=== PATIENT | male | born 1940 | race Two or more races ===

== ENCOUNTER 2017-08-10 16:04 | Inpatient (IN) | payer MEDICARE, MEDICAID ==
[~2017-08-10] VITALS: Ht 177.8 cm; Wt 60.0 kg
[~2017-08-10 16:04] MED LIST: ASPI81TA52 PO; CLOP75TA33 PO; DEXL60CA3 PO; IBUP-1985 PO; ISOS30TA6 PO; MECL-111 PO; METF10002 PO; METO25TA6 PO; ONDA4TAB12 PO; SIMV40TA PO; TAMS0.4C32 PO
[2017-08-10 16:30] LABS: BASOPHILS % (AUTO) 0.3 % (0-1); EOSINOPHILS # (AUTO) 0.1 X10'3 (0-0.9); EOSINOPHILS % (AUTO) 1.1 % (0-6); HEMATOCRIT 41.1 % (42.0-52.0); HEMOGLOBIN 13.7 g/dl (14.0-17.9); LYMPHOCYTES # (AUTO) 1.3 X10'3 (1.1-4.8); LYMPHOCYTES % (AUTO) 16.1 % (21-51); MEAN CORPUSCULAR HEMOGLOBIN 30.4 PG (27.0-31.0); MEAN CORPUSCULAR HGB CONC 33.3 % (33.0-36.5); MEAN CORPUSCULAR VOLUME 91.3 FL (78-98); MEAN PLATELET VOLUME 8.3 FL (7.4-10.4); MONOCYTES # (AUTO) 0.4 X10'3 (0-0.9); MONOCYTES % (AUTO) 5.2 % (2-12); NEUTROPHILS # (AUTO) 6.3 X10'3 (1.8-7.7); NEUTROPHILS % (AUTO) 77.3 % (42-75); PLATELET COUNT 220 X10'3 (140-440); RED CELL DISTRIBUTION WIDTH 15.8 % (11.5-14.5); WHITE BLOOD COUNT 8.1 X10'3 (4.5-11.0)
[2017-08-10 16:40] LABS: INR 1.1 INR; PARTIAL THROMBOPLASTIN TIME 28 SECONDS (22-32); PROTHROMBIN TIME 11.3 SECONDS (9.0-12.0)
[2017-08-10 16:43] LABS: ALANINE AMINOTRANSFERASE 20 U/L (12-78); ALBUMIN 3.9 G/DL (3.4-5.0); ALKALINE PHOSPHATASE 61 IU/L (46-116); ANION GAP 13 (8-16); ASPARTATE AMINO TRANSFERASE 13 U/L (10-37); BILIRUBIN,TOTAL 0.3 MG/DL (0.1-1.0); BLOOD UREA NITROGEN 24 MG/DL (7-18); BUN/CREATININE RATIO 14.6 (5.4-32.0); CALCIUM 9.5 MG/DL (8.5-10.1); CHLORIDE 103 MMOL/L (99-107); CREATININE 1.64 MG/DL (0.60-1.10); GLUCOSE 160 MG/DL (70-104); POTASSIUM 4.5 MMOL/L (3.5-5.1); SODIUM 142 MMOL/L (135-145); TOTAL CARBON DIOXIDE 25.7 MMOL/L (24-32); TOTAL PROTEIN 7.9 G/DL (6.4-8.2); eGFR 41 ML/MIN
[2017-08-10] MEDS ORDERED: aspirin 325mg tablet PO ONE (18:15)
[2017-08-10] MEDS ORDERED: LISI-600 PO (19:13)
[2017-08-11] VITALS (21 sets, daily range): BP systolic 81–123; BP diastolic 35–89
[2017-08-11] MEDS ORDERED: regadenoson 0.4mg/5ml syringe IV ONE ×2 (00:20→09:21)
[2017-08-11] MEDS ORDERED: magnesium 2GM in 50ml NS 50 ML IV PRN (00:20)
[2017-08-11] MEDS ORDERED: potassium Cl 20 mEq SR tablet PO PRN ×2 (00:20)
[2017-08-11] MEDS ORDERED: ipratropium/albuterol 3ml nebule NEB PRN (00:20)
[2017-08-11] MEDS ORDERED: morphine 4 MG/ML inj SYRINge IV PRN ×2 (00:20)
[2017-08-11] MEDS ORDERED: magnesium 4gm in 100ml NS 100 ML IV PRN (00:20)
[2017-08-11] MEDS ORDERED: ondansetron/PF 4mg/2ml inj IV PRN (00:20)
[2017-08-11] MEDS ORDERED: aminophylline 250mg/10ml inj. IV PRN (00:20)
[2017-08-11] MEDS ORDERED: albuterol 2.5 MG/3 ML nebule NEB PRN (00:20)
[2017-08-11] MEDS ORDERED: metoprolol tartrate 1mg/ml inj IV PRN (00:20)
[2017-08-11] MEDS ORDERED: magnesium Cl slow-release 64mg tablet PO PRN (00:20)
[2017-08-11] MEDS ORDERED: heparin 10,000 units/1 ML INJ IV ONE (00:20)
[2017-08-11] MEDS ORDERED: acetaminophen 325mg tablet PO PRN (00:20)
[2017-08-11] MEDS ORDERED: magnesium hydroxide 30ml (MOM) UD suspension PO PRN (00:20)
[2017-08-11] MEDS ORDERED: mag hydrox/Alum hydrox/simeth 30ml oral suspension PO PRN (00:20)
[2017-08-11] MEDS ORDERED: potassium Cl 40MEQ/NS 500ml 500 ML IV PRN ×2 (00:20)
[2017-08-11 01:11] LABS: HEMOGLOBIN A1C 6.4 % (4.5-6.2)
[2017-08-11] MEDS: normal saline 1000ml 1,000 ML IV SCH (02:18)
[2017-08-11] MEDS: nitroGLYCERIN 0.4mg SUBLingual tab SL PRN ×2 (04:46→04:53)
[2017-08-11 05:20] LABS: INR 1.1 INR; PARTIAL THROMBOPLASTIN TIME 65 SECONDS (22-32); PROTHROMBIN TIME 11.5 SECONDS (9.0-12.0)
[2017-08-11] MEDS: aspirin 81mg tablet.DR PO SCH (07:54)
[2017-08-11] MEDS: tamsulosin 0.4mg capsule PO SCH (07:54)
[2017-08-11] MEDS: clopidogrel 75mg tablet PO SCH (07:54)
[2017-08-11] MEDS: K and/or MAG REPLACEMENT MC SCH (08:00)
[2017-08-11] MEDS ORDERED: aminophylline inj. 10 ML IV ONE (09:21)
[2017-08-11] MEDS: heparin 10,000 units/1 ML INJ IV PRN (10:44)
[2017-08-11] MEDS: lisinopril 20mg tablet PO SCH (11:44)
[2017-08-11] MEDS ORDERED: temazepam 15mg capsule PO PRN (21:00)
[2017-08-11] MEDS ORDERED: atorvastatin 10mg tablet PO SCH (21:00)
[2017-08-12] VITALS (15 sets, daily range): BP systolic 82–200; BP diastolic 40–89
[2017-08-12] MEDS: heparin 10,000 units/1 ML INJ IV PRN (04:41)
[2017-08-12 06:07] LABS: BASOPHILS # (AUTO) 0.1 X10'3 (0-0.2); BASOPHILS % (AUTO) 0.6 % (0-1); EOSINOPHILS # (AUTO) 0.2 X10'3 (0-0.9); EOSINOPHILS % (AUTO) 2.7 % (0-6); HEMATOCRIT 37.5 % (42.0-52.0); HEMOGLOBIN 12.5 g/dl (14.0-17.9); LYMPHOCYTES # (AUTO) 1.4 X10'3 (1.1-4.8); LYMPHOCYTES % (AUTO) 17.4 % (21-51); MEAN CORPUSCULAR HEMOGLOBIN 30.7 PG (27.0-31.0); MEAN CORPUSCULAR HGB CONC 33.4 % (33.0-36.5); MEAN CORPUSCULAR VOLUME 91.9 FL (78-98); MEAN PLATELET VOLUME 8.9 FL (7.4-10.4); MONOCYTES # (AUTO) 0.6 X10'3 (0-0.9); MONOCYTES % (AUTO) 6.9 % (2-12); NEUTROPHILS # (AUTO) 5.9 X10'3 (1.8-7.7); NEUTROPHILS % (AUTO) 72.4 % (42-75); PLATELET COUNT 176 X10'3 (140-440); RED BLOOD COUNT 4.08 X10'6 (4.70-6.10); WHITE BLOOD COUNT 8.2 X10'3 (4.5-11.0)
[2017-08-12 06:26] LABS: ALBUMIN 3.3 G/DL (3.4-5.0); ANION GAP 10 (8-16); BLOOD UREA NITROGEN 25 MG/DL (7-18); BUN/CREATININE RATIO 22.1 (5.4-32.0); CALCIUM 9.1 MG/DL (8.5-10.1); CHLORIDE 106 MMOL/L (99-107); CHOL/HDL RATIO 3.4 (0.00-4.99); CHOLESTEROL 171 MG/DL (0-200); CREATININE 1.13 MG/DL (0.60-1.10); GLUCOSE 125 MG/DL (70-104); HDL CHOLESTEROL 51 MG/DL (35-60); LDL CHOLESTEROL 86 MG/DL (50-100); MAGNESIUM 1.6 MG/DL (1.5-2.4); POTASSIUM 4.2 MMOL/L (3.5-5.1); SODIUM 143 MMOL/L (135-145); TRIGLYCERIDES 217 MG/DL (20-135); eGFR 63 ML/MIN
[2017-08-12] MEDS: lisinopril 20mg tablet PO SCH ×2 (08:00→13:43)
[2017-08-12] MEDS: tamsulosin 0.4mg capsule PO SCH (08:00)
[2017-08-12] MEDS: aspirin 81mg tablet.DR PO SCH (08:00)
[2017-08-12] MEDS: clopidogrel 75mg tablet PO SCH (08:00)
[2017-08-12] MEDS: K and/or MAG REPLACEMENT MC SCH (08:00)
[2017-08-12] MEDS ORDERED: nitroGLYCERIN-Tridil 50MG/D5W 250 ML IV ONE (09:43)
[2017-08-12] MEDS ORDERED: fentaNYL/PF 50MCG/1 ML 2ML syringe ONE (09:43)
[2017-08-12] MEDS ORDERED: midazolam 2 mg/2 ml injection ONE (09:43)
[2017-08-12] MEDS ORDERED: iohexol 350MG/ML 100ml bottle IV ONE (09:44)
[2017-08-12] MEDS ORDERED: heparin 1,000unit/ml 10ml vial 10 ML ONE (09:44)
[2017-08-12] MEDS ORDERED: LIDOcaine 1%/PF (10mg/ml) 5ml vial ONE (09:44)
[2017-08-12] MEDS ORDERED: iohexol 350 MG/ML 50ML vial IV ONE (09:44)
[2017-08-12] MEDS ORDERED: atropine 0.1mg/ml 10ml syringe ONE (11:05)
[2017-08-12] MEDS ORDERED: IOHEXOL 350 MG/ML 150 ML injection IV ONE (11:07)
[2017-08-12] MEDS ORDERED: heparin 1,000 UNITS/NS 500ml 500 ML ONE (11:37)
[2017-08-12] MEDS ORDERED: clopidogrel 300mg tablet ONE (12:38)
[2017-08-12 13:30] LABS: ISTAT HGB ART 12.9 g/dl (14.0-18.0); ISTAT Hct ART 38 %PCV (42-52); ISTAT O2 SATURATION ARTERIAL 94 % (95-98); ISTAT SOURCE ART
[2017-08-12] MEDS ORDERED: clopidogrel 300mg tablet PO ONE (14:05)
[2017-08-12] MEDS ORDERED: nitroGLYCERIN-Tridil 50MG/D5W 250 ML IV PRN (14:10)
[2017-08-12] MEDS ORDERED: HYDROcodone/acetaminophen 10/325mg tab PO PRN ×2 (14:10)
[2017-08-12] MEDS ORDERED: OXAZEpam 15mg capsule PO PRN (14:10)
[2017-08-12] MEDS ORDERED: magnesium hydroxide 30ml (MOM) UD suspension PO PRN (14:10)
[2017-08-12] MEDS ORDERED: acetaminophen 325mg tablet PO PRN (14:10)
[2017-08-12] MEDS ORDERED: cyclobenzaprine 10mg tablet PO PRN (14:10)
[2017-08-12] MEDS ORDERED: aspirin 325mg tablet PO ONE (14:10)
[2017-08-12] MEDS ORDERED: proCHLORperazine 10 MG/2 ml inj IV PRN (14:10)
[2017-08-12] MEDS ORDERED: normal saline 1000ml 1,000 ML IV ONE (14:35)
[2017-08-12] MEDS ORDERED: hydrALAZINE 20mg/ml inj. IV PRN (18:35)
[2017-08-12] MEDS: normal saline 1000ml 1,000 ML IV SCH (20:31)
[2017-08-12] MEDS: atorvastatin 20mg tablet PO SCH (20:32)
[2017-08-12] MEDS: docusate sod 100mg capsule PO SCH (20:33)
[2017-08-12] MEDS: metoprolol tartrate 25mg tablet PO SCH (20:33)
[2017-08-13] VITALS (15 sets, daily range): BP systolic 92–146; BP diastolic 46–89
[2017-08-13] MEDS: K and/or MAG REPLACEMENT MC SCH (08:00)
[2017-08-13] MEDS: metoprolol tartrate 25mg tablet PO SCH ×2 (08:00→20:06)
[2017-08-13] MEDS ORDERED: aspirin 325mg tablet PO SCH (08:30)
[2017-08-13] MEDS: clopidogrel 75mg tablet PO SCH (09:37)
[2017-08-13] MEDS: tamsulosin 0.4mg capsule PO SCH (09:37)
[2017-08-13] MEDS: docusate sod 100mg capsule PO SCH ×2 (09:37→20:06)
[2017-08-13] MEDS: atorvastatin 20mg tablet PO SCH (20:06)
[2017-08-14 03:00] VITALS: BP 105/43
[2017-08-14 05:17] LABS: BASOPHILS % (AUTO) 0.5 % (0-1); EOSINOPHILS # (AUTO) 0.1 X10'3 (0-0.9); EOSINOPHILS % (AUTO) 1.8 % (0-6); HEMATOCRIT 35.2 % (42.0-52.0); HEMOGLOBIN 11.7 g/dl (14.0-17.9); LYMPHOCYTES % (AUTO) 12.6 % (21-51); MEAN CORPUSCULAR HEMOGLOBIN 30.4 PG (27.0-31.0); MEAN CORPUSCULAR HGB CONC 33.3 % (33.0-36.5); MEAN CORPUSCULAR VOLUME 91.1 FL (78-98); MEAN PLATELET VOLUME 9.1 FL (7.4-10.4); MONOCYTES # (AUTO) 0.5 X10'3 (0-0.9); MONOCYTES % (AUTO) 6.4 % (2-12); NEUTROPHILS # (AUTO) 6.1 X10'3 (1.8-7.7); NEUTROPHILS % (AUTO) 78.7 % (42-75); PLATELET COUNT 175 X10'3 (140-440); RED BLOOD COUNT 3.86 X10'6 (4.70-6.10); RED CELL DISTRIBUTION WIDTH 15.9 % (11.5-14.5); WHITE BLOOD COUNT 7.8 X10'3 (4.5-11.0)
[2017-08-14 05:45] LABS: ALANINE AMINOTRANSFERASE 21 U/L (12-78); ALBUMIN 3.1 G/DL (3.4-5.0); ALBUMIN/GLOBULIN RATIO 0.8 (1.1-1.5); ALKALINE PHOSPHATASE 50 IU/L (46-116); ANION GAP 10 (8-16); ASPARTATE AMINO TRANSFERASE 14 U/L (10-37); BILIRUBIN,TOTAL 0.2 MG/DL (0.1-1.0); BLOOD UREA NITROGEN 27 MG/DL (7-18); BUN/CREATININE RATIO 21.3 (5.4-32.0); CALCIUM 9.4 MG/DL (8.5-10.1); CHLORIDE 105 MMOL/L (99-107); CREATININE 1.27 MG/DL (0.60-1.10); GLUCOSE 228 MG/DL (70-104); SODIUM 142 MMOL/L (135-145); TOTAL CARBON DIOXIDE 27.5 MMOL/L (24-32); TOTAL PROTEIN 6.8 G/DL (6.4-8.2); eGFR 55 ML/MIN
[2017-08-14 06:00] VITALS: BP 122/53
[2017-08-14 07:51] LABS: ISTAT Hct MIX 39 %PCV (42-52); ISTAT O2 SATURATION MIX VENOUS 70 % (60-80); ISTAT SOURCE MIX
[2017-08-14] MEDS ORDERED: metFORMIN 500mg tablet PO SCH ×2 (08:00→20:00)
[2017-08-14] MEDS: K and/or MAG REPLACEMENT MC SCH (08:00)
[2017-08-14] MEDS ORDERED: aspirin 81mg tab.chew PO SCH (08:30)
[2017-08-14] MEDS: tamsulosin 0.4mg capsule PO SCH (09:01)
[2017-08-14] MEDS: docusate sod 100mg capsule PO SCH (09:01)
[2017-08-14] MEDS: metoprolol tartrate 25mg tablet PO SCH (09:02)
[2017-08-14] MEDS: clopidogrel 75mg tablet PO SCH (09:02)
[2017-08-14] MEDS: lisinopril 20mg tablet PO SCH (09:03)
[2017-08-14 11:00] VITALS: BP 107/55
[2017-08-14] MEDS ORDERED: NITR0.4T51 SL (11:04)
[2017-08-14] MEDS ORDERED: METO25TA6 PO (11:04)
[2017-08-14] MEDS ORDERED: CLOP75TA33 PO (11:04)
[2017-08-14 13:40] VITALS: BP 107/55
[2017-08-15] MEDS ORDERED: metFORMIN 500mg tablet PO SCH (08:00)
== END 2017-08-14 14:05 | disposition home health service (06) | DRG 246 ==
LOC: ER 16:05 → ED HOLD 08-11 00:16 → EDBEDREQ 08-11 18:10 → PCU 3S 08-11 19:51 → CICU 2S 08-12 12:21 → UNDODISIN 08-12 14:05 → PCU 3S 08-13 18:19
PROVIDERS: ADMIT Internal Medicine; ATTEND Internal Medicine
PROC: 4A02XM4 Measurement of Cardiac Total Activity, External Approach (ICD-10-PCS; 2017-08-11)
PROC: 3E073KZ Introduction of Other Diagnostic Substance into Coronary Artery, Percutaneous Approach (ICD-10-PCS; 2017-08-11)
PROC: 4A023N8 Measurement of Cardiac Sampling and Pressure, Bilateral, Percutaneous Approach (ICD-10-PCS; principal; 2017-08-12)
PROC: 027036Z Dilation of Coronary Artery, One Artery with Three Drug-eluting Intraluminal Devices, Percutaneous Approach (ICD-10-PCS; 2017-08-12)
PROC: B2111ZZ Fluoroscopy of Multiple Coronary Arteries using Low Osmolar Contrast (ICD-10-PCS; 2017-08-12)
PROC: B2151ZZ Fluoroscopy of Left Heart using Low Osmolar Contrast (ICD-10-PCS; 2017-08-12)
DX: I21.4 Non-ST elevation (NSTEMI) myocardial infarction (principal); N17.0 Acute kidney failure with tubular necrosis; Z68.1 Body mass index [BMI] 19.9 or less, adult; D64.9 Anemia, unspecified; E11.22 Type 2 diabetes mellitus with diabetic chronic kidney disease; I25.119 Atherosclerotic heart disease of native coronary artery with unspecified angina pectoris; E11.51 Type 2 diabetes mellitus with diabetic peripheral angiopathy without gangrene; E78.00 Pure hypercholesterolemia, unspecified; E78.5 Hyperlipidemia, unspecified; I12.9 Hypertensive chronic kidney disease with stage 1 through stage 4 chronic kidney disease, or unspecified chronic kidney disease; J44.9 Chronic obstructive pulmonary disease, unspecified; N18.9 Chronic kidney disease, unspecified; N40.0 Benign prostatic hyperplasia without lower urinary tract symptoms; F17.210 Nicotine dependence, cigarettes, uncomplicated; Z95.5 Presence of coronary angioplasty implant and graft; Z79.82 Long term (current) use of aspirin; Z79.02 Long term (current) use of antithrombotics/antiplatelets; Z79.84 Long term (current) use of oral hypoglycemic drugs; Z79.899 Other long term (current) drug therapy; Z85.46 Personal history of malignant neoplasm of prostate; Z92.3 Personal history of irradiation; Z71.6 Tobacco abuse counseling
CPT/HCPCS: 93306; 93460; 99285; C9600; 36415; 71045; 78452; 80048; 80053; 80061; 82803; 82948; 83036; 83735; 83880; 84484; 85014; 85025; 85347; 85610; 85730; 87070; 93005; 93017; 93458; 93922; 93926; 94760; 96374; 96375; 96376; 99152; 99153; A4620; A6213; A6257; A6258; A6449; A9500; C1725; C1769; C1874; C1887; C9601; J0280; J0461; J1644; J2001; J2250; J2405; J3010; J3490; J7030; Q9967

== ENCOUNTER 2017-11-04 10:22 | Emergency (ER) | payer MEDICARE, MEDICAID ==
[~2017-11-04] VITALS: Ht 180.3 cm; Wt 68.1 kg
[~2017-11-04 10:22] MED LIST changes: -DEXL60CA3 PO; -IBUP-1985 PO; -ISOS30TA6 PO; +LISI-600 PO; -MECL-111 PO; -METF10002 PO; +METF10004 PO; +NITR0.4T51 SL; -ONDA4TAB12 PO
[2017-11-04 10:38] VITALS: BP 126/46
[2017-11-04] MEDS ORDERED: HYDROcodone/acetaminophen 10/325mg tab PO ONE (11:10)
[2017-11-04] MEDS ORDERED: HYDR-565 PO (11:56)
== END 2017-11-04 12:31 | disposition home or self-care (01) ==
LOC: ER 10:24
DX: S40.012A Contusion of left shoulder, initial encounter (principal); I25.10 Atherosclerotic heart disease of native coronary artery without angina pectoris; E78.00 Pure hypercholesterolemia, unspecified; I10 Essential (primary) hypertension; E11.9 Type 2 diabetes mellitus without complications; F17.200 Nicotine dependence, unspecified, uncomplicated; Z79.02 Long term (current) use of antithrombotics/antiplatelets; Z79.84 Long term (current) use of oral hypoglycemic drugs; Z79.82 Long term (current) use of aspirin; W18.30XA Fall on same level, unspecified, initial encounter; Y93.89 Activity, other specified; Y92.89 Other specified places as the place of occurrence of the external cause; Y99.8 Other external cause status
CPT/HCPCS: 73030; 93005; 99284; A4565

== ENCOUNTER 2017-11-16 18:19 | Emergency (ER) | payer MEDICARE, MEDICAID ==
[~2017-11-16] VITALS: Ht 180.3 cm; Wt 56.0 kg
[~2017-11-16 18:19] MED LIST changes: +HYDR-565 PO
[2017-11-16 19:24] LABS: BASOPHILS % (AUTO) 0.4 % (0-1); EOSINOPHILS # (AUTO) 0.1 X10'3 (0-0.9); EOSINOPHILS % (AUTO) 1.9 % (0-6); HEMATOCRIT 39.6 % (42.0-52.0); HEMOGLOBIN 13.4 g/dl (14.0-17.9); LYMPHOCYTES # (AUTO) 1.5 X10'3 (1.1-4.8); LYMPHOCYTES % (AUTO) 21.1 % (21-51); MEAN CORPUSCULAR HEMOGLOBIN 31.3 PG (27.0-31.0); MEAN CORPUSCULAR HGB CONC 33.8 % (33.0-36.5); MEAN CORPUSCULAR VOLUME 92.6 FL (78-98); MEAN PLATELET VOLUME 7.8 FL (7.4-10.4); MONOCYTES # (AUTO) 0.5 X10'3 (0-0.9); MONOCYTES % (AUTO) 6.8 % (2-12); NEUTROPHILS % (AUTO) 69.8 % (42-75); PLATELET COUNT 268 X10'3 (140-440); RED BLOOD COUNT 4.27 X10'6 (4.70-6.10); RED CELL DISTRIBUTION WIDTH 14.9 % (11.5-14.5); WHITE BLOOD COUNT 7.2 X10'3 (4.5-11.0)
[2017-11-16 19:37] LABS: PARTIAL THROMBOPLASTIN TIME 28 SECONDS (22-32); PROTHROMBIN TIME 10.8 SECONDS (9.0-12.0)
[2017-11-16 19:42] LABS: ALANINE AMINOTRANSFERASE 26 U/L (12-78); ALBUMIN 4.1 G/DL (3.4-5.0); ALKALINE PHOSPHATASE 63 IU/L (46-116); ANION GAP 15 (8-16); ASPARTATE AMINO TRANSFERASE 13 U/L (10-37); BILIRUBIN,TOTAL 0.2 MG/DL (0.1-1.0); BLOOD UREA NITROGEN 39 MG/DL (7-18); BUN/CREATININE RATIO 22.4 (5.4-32.0); CALCIUM 10.1 MG/DL (8.5-10.1); CHLORIDE 104 MMOL/L (99-107); CREATININE 1.74 MG/DL (0.60-1.10); GLUCOSE 189 MG/DL (70-104); POTASSIUM 4.6 MMOL/L (3.5-5.1); SODIUM 144 MMOL/L (135-145); TOTAL CARBON DIOXIDE 24.7 MMOL/L (24-32); TOTAL PROTEIN 8.1 G/DL (6.4-8.2); eGFR 39 ML/MIN
[2017-11-17 00:01] VITALS: BP 110/52
== END 2017-11-17 00:11 | disposition home or self-care (01) ==
LOC: ER 18:19
DX: R42 Dizziness and giddiness (principal); I25.10 Atherosclerotic heart disease of native coronary artery without angina pectoris; E78.00 Pure hypercholesterolemia, unspecified; I10 Essential (primary) hypertension; E11.9 Type 2 diabetes mellitus without complications; Z98.61 Coronary angioplasty status; Z98.890 Other specified postprocedural states; Z85.9 Personal history of malignant neoplasm, unspecified; Z79.82 Long term (current) use of aspirin; Z79.84 Long term (current) use of oral hypoglycemic drugs; Z79.899 Other long term (current) drug therapy
CPT/HCPCS: 36415; 71045; 80053; 84484; 85025; 85610; 85730; 93005; 99285

== ENCOUNTER 2017-12-01 20:18 | Emergency (ER) | payer MEDICARE, MEDICAID ==
[~2017-12-01] VITALS: Ht 180.3 cm; Wt 68.2 kg
[2017-12-01 20:37] VITALS: BP 121/56
[2017-12-02] MEDS ORDERED: TETanus/Pertussis (Acell)/Diphther VAC/PF (Tdap-Adult) 0.5ml syringe IMVAC ONE (01:05)
[2017-12-02] MEDS ORDERED: BACI28OI9 TP (01:11)
== END 2017-12-02 01:27 | disposition home or self-care (01) ==
LOC: ER 20:18
DX: S91.204A Unspecified open wound of right lesser toe(s) with damage to nail, initial encounter (principal); I25.10 Atherosclerotic heart disease of native coronary artery without angina pectoris; E78.00 Pure hypercholesterolemia, unspecified; I10 Essential (primary) hypertension; Z79.82 Long term (current) use of aspirin; Z79.84 Long term (current) use of oral hypoglycemic drugs; Z79.899 Other long term (current) drug therapy; Z98.61 Coronary angioplasty status; X58.XXXA Exposure to other specified factors, initial encounter; Y93.89 Activity, other specified; Y92.89 Other specified places as the place of occurrence of the external cause; Y99.8 Other external cause status
CPT/HCPCS: 90471; 90715; 99283

== ENCOUNTER 2018-03-15 11:55 | Emergency (ER) | payer MEDICARE, MEDICAID ==
[~2018-03-15] VITALS: Ht 180.3 cm; Wt 72.1 kg
[~2018-03-15 11:55] MED LIST changes: +BACI28OI9 TP; -HYDR-565 PO; +METF-438 PO; -METF10004 PO
[2018-03-15 14:24] LABS: BASOPHILS % (AUTO) 0.6 % (0-1); EOSINOPHILS # (AUTO) 0.1 X10'3 (0-0.9); EOSINOPHILS % (AUTO) 1.1 % (0-6); HEMATOCRIT 43.2 % (42.0-52.0); HEMOGLOBIN 14.4 g/dl (14.0-17.9); LYMPHOCYTES # (AUTO) 1.6 X10'3 (1.1-4.8); LYMPHOCYTES % (AUTO) 23.6 % (21-51); MEAN CORPUSCULAR HGB CONC 33.4 % (33.0-36.5); MEAN PLATELET VOLUME 8.6 FL (7.4-10.4); MONOCYTES # (AUTO) 0.5 X10'3 (0-0.9); MONOCYTES % (AUTO) 7.4 % (2-12); NEUTROPHILS # (AUTO) 4.4 X10'3 (1.8-7.7); NEUTROPHILS % (AUTO) 67.3 % (42-75); PLATELET COUNT 221 X10'3 (140-440); RED BLOOD COUNT 4.64 X10'6 (4.70-6.10); RED CELL DISTRIBUTION WIDTH 13.5 % (11.5-14.5); WHITE BLOOD COUNT 6.6 X10'3 (4.5-11.0)
[2018-03-15 14:32] LABS: PARTIAL THROMBOPLASTIN TIME 29 SECONDS (22-32); PROTHROMBIN TIME 10.8 SECONDS (9.0-12.0)
[2018-03-15 14:34] LABS: ALANINE AMINOTRANSFERASE 22 U/L (12-78); ALBUMIN 3.8 G/DL (3.4-5.0); ALKALINE PHOSPHATASE 67 IU/L (46-116); ANION GAP 4 (8-16); ASPARTATE AMINO TRANSFERASE 13 U/L (10-37); BILIRUBIN,TOTAL 0.3 MG/DL (0.1-1.0); BLOOD UREA NITROGEN 17 MG/DL (7-18); BUN/CREATININE RATIO 13.5 (5.4-32.0); CALCIUM 9.9 MG/DL (8.5-10.1); CHLORIDE 104 MMOL/L (99-107); CREATININE 1.26 MG/DL (0.60-1.10); GLUCOSE 107 MG/DL (70-104); POTASSIUM 4.7 MMOL/L (3.5-5.1); SODIUM 140 MMOL/L (135-145); TOTAL PROTEIN 7.8 G/DL (6.4-8.2); eGFR 56 ML/MIN
[2018-03-15] MEDS ORDERED: DOCU-28 PO (15:20)
[2018-03-15 15:31] VITALS: BP 150/74
== END 2018-03-15 15:33 | disposition home or self-care (01) ==
LOC: ER 11:56
DX: K64.8 Other hemorrhoids (principal); K62.5 Hemorrhage of anus and rectum; I25.10 Atherosclerotic heart disease of native coronary artery without angina pectoris; E78.00 Pure hypercholesterolemia, unspecified; I10 Essential (primary) hypertension; E11.9 Type 2 diabetes mellitus without complications; Z95.5 Presence of coronary angioplasty implant and graft; Z79.82 Long term (current) use of aspirin; Z79.899 Other long term (current) drug therapy
CPT/HCPCS: 36415; 80053; 85025; 85610; 85730; 99284

== ENCOUNTER 2018-05-17 13:03 | Emergency (ER) | payer MEDICARE, MEDICAID ==
[~2018-05-17] VITALS: Ht 180.3 cm; Wt 59.0 kg
[~2018-05-17 13:03] MED LIST changes: +DOCU-28 PO; +TRAM50TA2 PO
[2018-05-17 13:20] VITALS: BP 141/77
[2018-05-17] MEDS ORDERED: HYDR-4383 PO (15:14)
== END 2018-05-17 15:31 | disposition home or self-care (01) ==
LOC: ER 13:04
DX: M53.3 Sacrococcygeal disorders, not elsewhere classified (principal); I25.10 Atherosclerotic heart disease of native coronary artery without angina pectoris; E78.00 Pure hypercholesterolemia, unspecified; I10 Essential (primary) hypertension; E11.9 Type 2 diabetes mellitus without complications; Z98.61 Coronary angioplasty status; Z79.82 Long term (current) use of aspirin; Z79.84 Long term (current) use of oral hypoglycemic drugs; Z79.899 Other long term (current) drug therapy
CPT/HCPCS: 99283

== ENCOUNTER 2018-06-12 10:39 | Emergency (ER) | payer MEDICARE, MEDICAID ==
[~2018-06-12] VITALS: Ht 180.3 cm; Wt 66.8 kg
[~2018-06-12 10:39] MED LIST changes: +HYDR-4383 PO; -TRAM50TA2 PO
[2018-06-12 11:53] VITALS: BP 120/76
== END 2018-06-12 11:57 | disposition home or self-care (01) ==
LOC: ER 10:40
DX: H61.23 Impacted cerumen, bilateral (principal); I25.10 Atherosclerotic heart disease of native coronary artery without angina pectoris; E78.00 Pure hypercholesterolemia, unspecified; I10 Essential (primary) hypertension; E11.9 Type 2 diabetes mellitus without complications; Z98.61 Coronary angioplasty status; Z79.82 Long term (current) use of aspirin; Z79.84 Long term (current) use of oral hypoglycemic drugs; Z79.899 Other long term (current) drug therapy
CPT/HCPCS: 69209; 99282

== ENCOUNTER 2018-06-19 21:12 | Emergency (ER) | payer MEDICARE, MEDICAID ==
[~2018-06-19] VITALS: Ht 180.3 cm; Wt 68.2 kg
[2018-06-19 21:14] VITALS: BP 179/80
== END 2018-06-19 22:33 | disposition left against medical advice (07) ==
LOC: ER 21:12
DX: H92.01 Otalgia, right ear (principal); Z53.21 Procedure and treatment not carried out due to patient leaving prior to being seen by health care provider

== ENCOUNTER 2019-02-04 12:34 | Emergency (ER) | payer MEDICARE, MEDICAID ==
[~2019-02-04] VITALS: Ht 175.3 cm; Wt 67.9 kg
[2019-02-04 13:34] LABS: BASOPHILS # (AUTO) 0.1 X10'3 (0-0.2); BASOPHILS % (AUTO) 0.8 % (0-1); EOSINOPHILS # (AUTO) 0.1 X10'3 (0-0.9); EOSINOPHILS % (AUTO) 1.7 % (0-6); HEMATOCRIT 42.8 % (42.0-52.0); HEMOGLOBIN 14.3 g/dl (14.0-17.9); LYMPHOCYTES # (AUTO) 1.4 X10'3 (1.1-4.8); MEAN CORPUSCULAR HEMOGLOBIN 31.8 PG (27.0-31.0); MEAN CORPUSCULAR HGB CONC 33.4 g/dL (33.0-36.5); MEAN CORPUSCULAR VOLUME 95.3 FL (78-98); MEAN PLATELET VOLUME 8.8 FL (7.4-10.4); MONOCYTES # (AUTO) 0.5 X10'3 (0-0.9); MONOCYTES % (AUTO) 7.3 % (2-12); NEUTROPHILS # (AUTO) 4.9 X10'3 (1.8-7.7); NEUTROPHILS % (AUTO) 70.2 % (42-75); PLATELET COUNT 228 X10'3 (140-440); RED BLOOD COUNT 4.49 X10'6 (4.70-6.10); RED CELL DISTRIBUTION WIDTH 13.7 % (11.5-14.5); WHITE BLOOD COUNT 6.9 X10'3 (4.5-11.0)
[2019-02-04 13:40] LABS: PARTIAL THROMBOPLASTIN TIME 32 SECONDS (22-32)
[2019-02-04 13:43] LABS: ALANINE AMINOTRANSFERASE 22 U/L (12-78); ALKALINE PHOSPHATASE 70 IU/L (46-116); ANION GAP 13 (8-16); ASPARTATE AMINO TRANSFERASE 13 U/L (10-37); BILIRUBIN,TOTAL 0.3 MG/DL (0.1-1.0); BLOOD UREA NITROGEN 24 MG/DL (7-18); BUN/CREATININE RATIO 14.7 (5.4-32.0); CALCIUM 9.9 MG/DL (8.5-10.1); CHLORIDE 105 MMOL/L (99-107); CREATININE 1.63 MG/DL (0.60-1.10); GLUCOSE 96 MG/DL (70-104); POTASSIUM 5.1 MMOL/L (3.5-5.1); SODIUM 141 MMOL/L (135-145); TOTAL CARBON DIOXIDE 22.8 MMOL/L (24-32); eGFR 41 ML/MIN
[2019-02-04] MEDS ORDERED: normal saline 1000ML IV soln IVB ONE (14:25)
[2019-02-04] MEDS ORDERED: ondansetron/PF 4mg/2ml inj IV ONE (14:35)
[2019-02-04 15:08] VITALS: BP 132/62
== END 2019-02-04 16:02 | disposition home or self-care (01) ==
LOC: ER 12:36
DX: T67.5XXA Heat exhaustion, unspecified, initial encounter (principal); N17.9 Acute kidney failure, unspecified; I12.9 Hypertensive chronic kidney disease with stage 1 through stage 4 chronic kidney disease, or unspecified chronic kidney disease; E11.22 Type 2 diabetes mellitus with diabetic chronic kidney disease; N18.9 Chronic kidney disease, unspecified; E86.0 Dehydration; I25.10 Atherosclerotic heart disease of native coronary artery without angina pectoris; E78.00 Pure hypercholesterolemia, unspecified; Z98.61 Coronary angioplasty status; Z79.82 Long term (current) use of aspirin; Z79.84 Long term (current) use of oral hypoglycemic drugs; Z79.899 Other long term (current) drug therapy; X30.XXXA Exposure to excessive natural heat, initial encounter; Y93.89 Activity, other specified; Y92.89 Other specified places as the place of occurrence of the external cause; Y99.8 Other external cause status
CPT/HCPCS: 36415; 71045; 80053; 84484; 85025; 85610; 85730; 93005; 96361; 96374; 99284; J2405; J7030

== ENCOUNTER 2019-04-12 08:57 | Emergency (ER) | payer MEDICARE, MEDICAID ==
[~2019-04-12] VITALS: Ht 175.3 cm; Wt 73.0 kg
[2019-04-12] MEDS ORDERED: ondansetron 4mg rapidly disintigrating tab PO ONE (09:20)
[2019-04-12 09:54] LABS: BASOPHILS # (AUTO) 0.1 X10'3 (0-0.2); BASOPHILS % (AUTO) 1.3 % (0-1); EOSINOPHILS # (AUTO) 0.2 X10'3 (0-0.9); EOSINOPHILS % (AUTO) 3.2 % (0-6); HEMATOCRIT 41.7 % (42.0-52.0); HEMOGLOBIN 14.1 g/dl (14.0-17.9); LYMPHOCYTES # (AUTO) 1.1 X10'3 (1.1-4.8); MEAN CORPUSCULAR HEMOGLOBIN 31.7 PG (27.0-31.0); MEAN CORPUSCULAR HGB CONC 33.8 g/dL (33.0-36.5); MEAN CORPUSCULAR VOLUME 93.7 FL (78-98); MEAN PLATELET VOLUME 8.2 FL (7.4-10.4); MONOCYTES # (AUTO) 0.3 X10'3 (0-0.9); MONOCYTES % (AUTO) 4.8 % (2-12); NEUTROPHILS # (AUTO) 4.6 X10'3 (1.8-7.7); NEUTROPHILS % (AUTO) 73.7 % (42-75); PLATELET COUNT 231 X10'3 (140-440); RED BLOOD COUNT 4.45 X10'6 (4.70-6.10); RED CELL DISTRIBUTION WIDTH 13.4 % (11.5-14.5); WHITE BLOOD COUNT 6.3 X10'3 (4.5-11.0)
[2019-04-12] MEDS ORDERED: meclizine 12.5mg tablet PO ONE (10:15)
[2019-04-12 10:20] LABS: ALANINE AMINOTRANSFERASE 24 U/L (12-78); ALKALINE PHOSPHATASE 62 IU/L (46-116); ANION GAP 8 (8-16); ASPARTATE AMINO TRANSFERASE 15 U/L (10-37); BILIRUBIN,TOTAL 0.3 MG/DL (0.1-1.0); BLOOD UREA NITROGEN 17 MG/DL (7-18); BUN/CREATININE RATIO 15.2 (5.4-32.0); CALCIUM 9.9 MG/DL (8.5-10.1); CHLORIDE 103 MMOL/L (99-107); CREATININE 1.12 MG/DL (0.60-1.10); GLUCOSE 176 MG/DL (70-104); POTASSIUM 4.5 MMOL/L (3.5-5.1); SODIUM 140 MMOL/L (135-145); TOTAL CARBON DIOXIDE 28.6 MMOL/L (24-32); TOTAL PROTEIN 8.1 G/DL (6.4-8.2); eGFR 64 ML/MIN
[2019-04-12 10:28] LABS: MAGNESIUM 1.1 MG/DL (1.5-2.4)
[2019-04-12] MEDS ORDERED: ONDA4TAB12 PO (10:40)
[2019-04-12 11:12] VITALS: BP 186/84
== END 2019-04-12 11:13 | disposition home or self-care (01) ==
LOC: ER 08:58
DX: R42 Dizziness and giddiness (principal); I25.10 Atherosclerotic heart disease of native coronary artery without angina pectoris; E78.00 Pure hypercholesterolemia, unspecified; I10 Essential (primary) hypertension; E11.9 Type 2 diabetes mellitus without complications; Z95.5 Presence of coronary angioplasty implant and graft; Z79.82 Long term (current) use of aspirin; Z79.899 Other long term (current) drug therapy
CPT/HCPCS: 36415; 71045; 80053; 82948; 83735; 83880; 84484; 85025; 93005; 99284; J8597

== ENCOUNTER 2019-06-27 11:23 | Emergency (ER) | payer OTHER, MEDICARE, MEDICAID ==
[~2019-06-27] VITALS: Ht 180.3 cm; Wt 71.1 kg
[~2019-06-27 11:23] MED LIST changes: +ONDA4TAB12 PO
[2019-06-27 12:27] VITALS: BP 143/84
[2019-06-27 12:41] LABS: BASOPHILS # (AUTO) 0.1 X10'3 (0-0.2); BASOPHILS % (AUTO) 0.8 % (0-1); EOSINOPHILS # (AUTO) 0.1 X10'3 (0-0.9); EOSINOPHILS % (AUTO) 1.6 % (0-6); HEMATOCRIT 42.9 % (42.0-52.0); HEMOGLOBIN 14.3 g/dl (14.0-17.9); LYMPHOCYTES # (AUTO) 1.5 X10'3 (1.1-4.8); MEAN CORPUSCULAR HEMOGLOBIN 30.8 PG (27.0-31.0); MEAN CORPUSCULAR HGB CONC 33.3 g/dL (33.0-36.5); MEAN CORPUSCULAR VOLUME 92.3 FL (78-98); MEAN PLATELET VOLUME 8.2 FL (7.4-10.4); MONOCYTES # (AUTO) 0.4 X10'3 (0-0.9); MONOCYTES % (AUTO) 6.7 % (2-12); NEUTROPHILS # (AUTO) 4.3 X10'3 (1.8-7.7); NEUTROPHILS % (AUTO) 66.9 % (42-75); PLATELET COUNT 245 X10'3 (140-440); RED BLOOD COUNT 4.65 X10'6 (4.70-6.10); RED CELL DISTRIBUTION WIDTH 13.9 % (11.5-14.5); WHITE BLOOD COUNT 6.4 X10'3 (4.5-11.0)
[2019-06-27 12:53] LABS: PARTIAL THROMBOPLASTIN TIME 30 SECONDS (22-32)
[2019-06-27 13:00] LABS: ALANINE AMINOTRANSFERASE 20 U/L (12-78); ALBUMIN 4.1 G/DL (3.4-5.0); ALBUMIN/GLOBULIN RATIO 1.1 (1.1-1.5); ALKALINE PHOSPHATASE 58 IU/L (46-116); ANION GAP 9 (8-16); ASPARTATE AMINO TRANSFERASE 14 U/L (10-37); BILIRUBIN,TOTAL 0.3 MG/DL (0.1-1.0); BLOOD UREA NITROGEN 13 MG/DL (7-18); BUN/CREATININE RATIO 10.2 (5.4-32.0); CALCIUM 9.7 MG/DL (8.5-10.1); CHLORIDE 104 MMOL/L (99-107); CREATININE 1.27 MG/DL (0.60-1.10); GLUCOSE 103 MG/DL (70-104); POTASSIUM 4.5 MMOL/L (3.5-5.1); SODIUM 141 MMOL/L (135-145); TOTAL CARBON DIOXIDE 28.4 MMOL/L (24-32); TOTAL PROTEIN 7.8 G/DL (6.4-8.2); eGFR 55 ML/MIN
[2019-06-27] MEDS ORDERED: HYDROcodone/acetaminophen 5mg/325mg tablet PO ONE (13:55)
[2019-06-27 13:57] LABS: CLARITY,URINE CLEAR (Clear); COLOR,URINE STRAW (Yellow); GLUCOSE, URINE NEGATIVE (Neg); KETONES,URINE NEGATIVE (Neg); LEUKOCYTE ESTERASE ,URINE NEGATIVE (Neg); NITRITES, URINE NEGATIVE (Neg); OCCULT BLOOD,URINE TRACE-INTACT (Neg); PROTEIN,URINE 100 mg/dl (Neg); UROBILINOGEN,URINE 0.2 E.U/dL (0.2-1.0)
[2019-06-27 13:58] LABS: UA COLLECTION TYPE CLN CATCH MIDSTREAM
[2019-06-27 14:12] LABS: MUCUS STRANDS FEW /LPF (Neg); SQUAMOUS EPITHELIAL CELL,UR FEW /LPF (FEW)
[2019-06-27 14:13] LABS: BACTERIA,URINE FEW /HPF (Neg); HYALINE CASTS 0-3 /LPF (NEGATIVE); RBC,URINE 0-2 /HPF (0-2); WBC,URINE 0-4 /HPF (0-4)
== END 2019-06-27 15:20 | disposition home or self-care (01) ==
LOC: ER 11:24
DX: M48.061 Spinal stenosis, lumbar region without neurogenic claudication (principal); M51.36 Other intervertebral disc degeneration, lumbar region; I25.10 Atherosclerotic heart disease of native coronary artery without angina pectoris; E78.00 Pure hypercholesterolemia, unspecified; I10 Essential (primary) hypertension; E11.9 Type 2 diabetes mellitus without complications; F10.99 Alcohol use, unspecified with unspecified alcohol-induced disorder; R79.1 Abnormal coagulation profile; Z98.61 Coronary angioplasty status; Z98.890 Other specified postprocedural states; Z79.82 Long term (current) use of aspirin; Z79.84 Long term (current) use of oral hypoglycemic drugs; Z79.899 Other long term (current) drug therapy; Y90.9 Presence of alcohol in blood, level not specified
CPT/HCPCS: 36415; 71045; 72146; 72148; 80053; 81001; 85025; 85610; 85730; 93005; 99284

== ENCOUNTER 2019-07-30 07:13 | Emergency (ER) | payer MEDICAID, MEDICARE, OTHER ==
[~2019-07-30] VITALS: Ht 180.3 cm; Wt 70.0 kg
[2019-07-30 07:15] VITALS: BP 133/64
[2019-07-30] MEDS ORDERED: ketorolac trometh. 30mg/ml inj. IM ONE (07:35)
[2019-07-30] MEDS ORDERED: CYCL-1 PO (07:40)
== END 2019-07-30 07:54 | disposition home or self-care (01) ==
LOC: ER 07:14
DX: M54.5 Low back pain (principal); G89.29 Other chronic pain; M62.830 Muscle spasm of back; I25.10 Atherosclerotic heart disease of native coronary artery without angina pectoris; E78.00 Pure hypercholesterolemia, unspecified; I10 Essential (primary) hypertension; E11.9 Type 2 diabetes mellitus without complications; Z95.5 Presence of coronary angioplasty implant and graft; Z79.82 Long term (current) use of aspirin; Z79.899 Other long term (current) drug therapy
CPT/HCPCS: 96372; 99283; J1885

== ENCOUNTER 2019-08-24 09:01 | Emergency (ER) | payer MEDICARE, MEDICAID ==
[~2019-08-24] VITALS: Ht 180.3 cm; Wt 69.1 kg
[~2019-08-24 09:01] MED LIST changes: +CYCL-1 PO
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
[2019-08-24] MEDS ORDERED: ibuprofen 200mg tablet PO ONE (10:00)
[2019-08-24] MEDS ORDERED: CELE-193 PO (10:25)
[2019-08-24 10:34] VITALS: BP 156/89
== END 2019-08-24 10:44 | disposition home or self-care (01) ==
LOC: ER 09:02
DX: R07.89 Other chest pain (principal); M54.5 Low back pain; G89.29 Other chronic pain; E78.00 Pure hypercholesterolemia, unspecified; I25.10 Atherosclerotic heart disease of native coronary artery without angina pectoris; I10 Essential (primary) hypertension; E11.9 Type 2 diabetes mellitus without complications; F17.200 Nicotine dependence, unspecified, uncomplicated; Z79.82 Long term (current) use of aspirin; Z79.899 Other long term (current) drug therapy
CPT/HCPCS: 71046; 93005; 99283

== ENCOUNTER 2020-05-15 10:24 | Emergency (ER) | payer MEDICARE, MEDICAID ==
[~2020-05-15] VITALS: Ht 180.3 cm; Wt 72.7 kg
[2020-05-15 11:40] LABS: BASOPHILS # (AUTO) 0.1 X10'3 (0-0.2); BASOPHILS % (AUTO) 0.8 % (0-1); EOSINOPHILS # (AUTO) 0.1 X10'3 (0-0.9); EOSINOPHILS % (AUTO) 1.3 % (0-6); HEMATOCRIT 42.6 % (42.0-52.0); HEMOGLOBIN 14.2 g/dl (14.0-17.9); LYMPHOCYTES # (AUTO) 1.7 X10'3 (1.1-4.8); LYMPHOCYTES % (AUTO) 22.4 % (21-51); MEAN CORPUSCULAR HEMOGLOBIN 30.9 PG (27.0-31.0); MEAN CORPUSCULAR HGB CONC 33.4 g/dL (33.0-36.5); MEAN CORPUSCULAR VOLUME 92.7 FL (78-98); MEAN PLATELET VOLUME 9.4 FL (7.4-10.4); MONOCYTES # (AUTO) 0.5 X10'3 (0-0.9); NEUTROPHILS # (AUTO) 5.2 X10'3 (1.8-7.7); NEUTROPHILS % (AUTO) 68.5 % (42-75); PLATELET COUNT 210 X10'3 (140-440); RED BLOOD COUNT 4.59 X10'6 (4.70-6.10); RED CELL DISTRIBUTION WIDTH 14.3 % (11.5-14.5); WHITE BLOOD COUNT 7.6 X10'3 (4.5-11.0)
--- NOTE | 2020-05-15 12:36 | NUR ---
Spoke with lab, pt's CMP should be resulted in 5 minutes.
[2020-05-15 12:40] LABS: ALANINE AMINOTRANSFERASE 42 U/L (12-78); ALBUMIN 4.3 G/DL (3.4-5.0); ALBUMIN/GLOBULIN RATIO 1.1 (1.1-1.5); ALKALINE PHOSPHATASE 53 IU/L (46-116); ANION GAP 12 (8-16); ASPARTATE AMINO TRANSFERASE 23 U/L (10-37); BILIRUBIN,TOTAL 0.3 MG/DL (0.1-1.0); BLOOD UREA NITROGEN 25 MG/DL (7-18); CALCIUM 10.3 MG/DL (8.5-10.1); CHLORIDE 105 MMOL/L (99-107); CREATININE 1.47 MG/DL (0.60-1.10); GLUCOSE 122 MG/DL (70-104); POTASSIUM 4.4 MMOL/L (3.5-5.1); SODIUM 145 MMOL/L (135-145); TOTAL CARBON DIOXIDE 28.5 MMOL/L (24-32); TOTAL PROTEIN 8.3 G/DL (6.4-8.2); eGFR 46 ML/MIN
[2020-05-15 12:49] VITALS: BP 128/57
== END 2020-05-15 12:52 | disposition home or self-care (01) ==
LOC: ER 10:24
DX: R42 Dizziness and giddiness (principal); R11.10 Vomiting, unspecified; I25.10 Atherosclerotic heart disease of native coronary artery without angina pectoris; E78.00 Pure hypercholesterolemia, unspecified; I10 Essential (primary) hypertension; E11.9 Type 2 diabetes mellitus without complications; G89.29 Other chronic pain; Z85.9 Personal history of malignant neoplasm, unspecified; Z98.890 Other specified postprocedural states; Z72.89 Other problems related to lifestyle; Z79.82 Long term (current) use of aspirin; Z79.899 Other long term (current) drug therapy
CPT/HCPCS: 36415; 71045; 80053; 83880; 84484; 85025; 93005; 99285

== ENCOUNTER 2020-07-02 12:05 | Inpatient (IN) | payer MEDICARE, MEDICAID ==
[~2020-07-02] VITALS: Ht 180.3 cm; Wt 70.0 kg
[2020-07-02] MEDS ORDERED: normal saline 1000ml 1,000 ML IV ONE ×2 (12:45→14:05)
[2020-07-02] MEDS ORDERED: ondansetron/PF 4mg/2ml inj IV ONE (12:45)
[2020-07-02 13:39] LABS: BASOPHILS # (AUTO) 0.1 X10'3 (0-0.2); BASOPHILS % (AUTO) 0.5 % (0-1); EOSINOPHILS % (AUTO) 0.5 % (0-6); HEMOGLOBIN 9.4 g/dl (14.0-17.9); LYMPHOCYTES % (AUTO) 9.3 % (21-51); MEAN CORPUSCULAR HEMOGLOBIN 30.9 PG (27.0-31.0); MEAN CORPUSCULAR HGB CONC 33.5 g/dL (33.0-36.5); MEAN CORPUSCULAR VOLUME 92.2 FL (78-98); MONOCYTES # (AUTO) 0.6 X10'3 (0-0.9); NEUTROPHILS # (AUTO) 8.6 X10'3 (1.8-7.7); NEUTROPHILS % (AUTO) 83.7 % (42-75); PLATELET COUNT 252 X10'3 (140-440); RED BLOOD COUNT 3.04 X10'6 (4.70-6.10); RED CELL DISTRIBUTION WIDTH 14.4 % (11.5-14.5); WHITE BLOOD COUNT 10.3 X10'3 (4.5-11.0)
[2020-07-02 13:53] LABS: ALANINE AMINOTRANSFERASE 43 U/L (12-78); ALBUMIN 3.8 G/DL (3.4-5.0); ALKALINE PHOSPHATASE 60 IU/L (46-116); ANION GAP 11 (8-16); BILIRUBIN,TOTAL 0.2 MG/DL (0.1-1.0); BLOOD UREA NITROGEN 49 MG/DL (7-18); BUN/CREATININE RATIO 10.3 (5.4-32.0); CALCIUM 9.3 MG/DL (8.5-10.1); CHLORIDE 105 MMOL/L (99-107); CREATININE 4.76 MG/DL (0.60-1.10); GLUCOSE 159 MG/DL (70-104); SODIUM 140 MMOL/L (135-145); TOTAL CARBON DIOXIDE 24.2 MMOL/L (24-32); TOTAL PROTEIN 7.8 G/DL (6.4-8.2); eGFR 12 ML/MIN
[2020-07-02 13:57] LABS: POTASSIUM 5.1 MMOL/L (3.5-5.1)
[2020-07-02 14:02] LABS: ASPARTATE AMINO TRANSFERASE 44 U/L (10-37)
[2020-07-02] MEDS ORDERED: pantoprazole 40 MG vial IV ONE (14:10)
[2020-07-02] MEDS ORDERED: CLOP75TA34 PO (15:04)
[2020-07-02] MEDS ORDERED: HYDR-3964 PO (15:06)
[2020-07-02] MEDS ORDERED: PANT40TA54 PO (15:06)
[2020-07-02] MEDS ORDERED: ROSU40TA22 PO (15:08)
[2020-07-02] MEDS ORDERED: METO-395 PO (15:09)
[2020-07-02] MEDS ORDERED: ALBU8.5H8 PO (15:09)
[2020-07-02] MEDS ORDERED: OXYB10TA30 PO (15:09)
[2020-07-02] MEDS ORDERED: ICOS1CAP PO (15:10)
[2020-07-02] MEDS ORDERED: CELE100C98 PO (15:10)
[2020-07-02] MEDS ORDERED: acetaminophen 325mg tablet PO PRN (15:25)
[2020-07-02] MEDS ORDERED: potassium Cl 20 mEq SR tablet PO PRN ×2 (15:25)
[2020-07-02] MEDS ORDERED: morphine 2 MG/ML inj. syringe IV PRN (15:25)
[2020-07-02] MEDS ORDERED: HYDROcodone/acetaminophen 5mg/325mg tablet PO PRN (15:25)
[2020-07-02] MEDS ORDERED: magnesium Cl slow-release 64mg tablet PO PRN (15:25)
[2020-07-02] MEDS ORDERED: ondansetron/PF 4mg/2ml inj IV PRN (15:25)
[2020-07-02] MEDS ORDERED: potassium Cl 40MEQ/1/2NS 520ml 520 ML IV PRN ×2 (15:25)
[2020-07-02] MEDS ORDERED: magnesium 2GM in 50ml NS 50 ML IV PRN (15:25)
[2020-07-02] MEDS ORDERED: magnesium 4gm in 100ml NS 100 ML IV PRN (15:25)
[2020-07-02] MEDS ORDERED: ALBUTEROL INHALER 1 PUFF/90 MCG INHALER IH PRN (15:30)
[2020-07-02] MEDS ORDERED: albuterol 2.5 MG/3 ML nebule NEB PRN (15:45)
[2020-07-02 15:59] LABS: GASTRIC OCCULT BLOOD POSITIVE (Neg)
[2020-07-02] MEDS ORDERED: LIDOcaine 2% 10ml TOPICAL JELLY (Urojet) TP ONE (16:00)
[2020-07-02] MEDS ORDERED: glucagon, human recombinant 1mg kit SUBCUT PRN (16:00)
[2020-07-02] MEDS ORDERED: dextrose 50%-water 50ml dispensing syringe IV PRN ×2 (16:00)
[2020-07-02] MEDS ORDERED: dextrose ORAL solution 15 GM/59 ML bottle PO PRN ×2 (16:00)
[2020-07-02] MEDS ORDERED: MESSAGE TO PHARMACY PO ONE (16:00)
[2020-07-02] MEDS ORDERED: insulin Lispro (HumaLOG) vial - multi-dose SQ SCH (16:00)
[2020-07-02] MEDS: pantoprazole 40MG/NS 100ML BAG 100 ML IV SCH ×2 (16:14→20:53)
[2020-07-02] MEDS: normal saline 1000ml 1,000 ML IV SCH (16:14)
[2020-07-02 16:42] LABS: HEMOGLOBIN A1C 6.7 % (4.5-6.2)
[2020-07-02 17:04] LABS: CLARITY,URINE CLEAR (Clear); GLUCOSE, URINE NEGATIVE (Neg); KETONES,URINE NEGATIVE (Neg); LEUKOCYTE ESTERASE ,URINE NEGATIVE (Neg); NITRITES, URINE NEGATIVE (Neg); OCCULT BLOOD,URINE SMALL (Neg); PH,URINE 6.5 (4.8-8.0); PROTEIN,URINE 100 mg/dl (Neg); UROBILINOGEN,URINE 0.2 E.U/dL (0.2-1.0)
[2020-07-02 17:07] LABS: COLOR,URINE STRAW (Yellow); UA COLLECTION TYPE FOLEY CATH
--- NOTE | 2020-07-02 17:09 | NUR ---
Received report from GENARO Saxena in the ED. Awaiting patient arrival to room 3012A.
[2020-07-02 17:30] LABS: RBC,URINE 0-2 /HPF (0-2); RENAL CELLS, URINE FEW /HPF; SQUAMOUS EPITHELIAL CELL,UR FEW /LPF (FEW); TRANSITIONAL EPI CELLS,URINE FEW /HPF
[2020-07-02 17:31] LABS: BACTERIA,URINE FEW /HPF (Neg); WBC CLUMPS,URINE FEW /HPF (NEGATIVE)
--- NOTE | 2020-07-02 17:35 | NUR ---
Patient arrived to room 3012A via gurney and ambulated from [facility] to the hospital bed. Patient vital sings HR 73, RR 17, 96% on room air, BP 123/46, temp 98.3F. Patient has Protonix gtt at 20mL/hr, and NS at 100mL/hr going into his left hand. Bed locked and lowered, nonskid socks on and in no acute distress. Will continue to monitor.
[2020-07-02 18:00] VITALS: BP 123/46
--- NOTE | 2020-07-02 18:12 | NUR ---
Problems reprioritized. Patient report given, questions answered & plan of care reviewed with GENARO Rodríguez. Patient stable at transfer of care.
[2020-07-02] MEDS: K and/or MAG REPLACEMENT MC SCH (20:00)
[2020-07-02] MEDS: insulin glargine (Lantus) pen - multi-dose SQ SCH (20:54)
[2020-07-02] MEDS ORDERED: temazepam 15mg capsule PO PRN (21:00)
[2020-07-02 22:00] VITALS: BP 122/48
[2020-07-03] VITALS (16 sets, daily range): BP systolic 109–155; BP diastolic 41–70
[2020-07-03] MEDS: pantoprazole 40MG/NS 100ML BAG 100 ML IV SCH ×5 (02:06→22:22)
[2020-07-03] MEDS: normal saline 1000ml 1,000 ML IV SCH ×3 (02:06→22:20)
[2020-07-03 06:10] LABS: BASOPHILS # (AUTO) 0.1 X10'3 (0-0.2); BASOPHILS % (AUTO) 0.6 % (0-1); EOSINOPHILS # (AUTO) 0.1 X10'3 (0-0.9); EOSINOPHILS % (AUTO) 0.8 % (0-6); HEMOGLOBIN 7.4 g/dl (14.0-17.9); LYMPHOCYTES % (AUTO) 12.6 % (21-51); MEAN CORPUSCULAR HEMOGLOBIN 30.7 PG (27.0-31.0); MEAN CORPUSCULAR HGB CONC 33.5 g/dL (33.0-36.5); MEAN CORPUSCULAR VOLUME 91.7 FL (78-98); MEAN PLATELET VOLUME 8.8 FL (7.4-10.4); MONOCYTES # (AUTO) 0.5 X10'3 (0-0.9); MONOCYTES % (AUTO) 6.2 % (2-12); NEUTROPHILS # (AUTO) 6.6 X10'3 (1.8-7.7); NEUTROPHILS % (AUTO) 79.8 % (42-75); PLATELET COUNT 213 X10'3 (140-440); RED CELL DISTRIBUTION WIDTH 14.3 % (11.5-14.5); WHITE BLOOD COUNT 8.3 X10'3 (4.5-11.0)
[2020-07-03 06:36] LABS: ALANINE AMINOTRANSFERASE 29 U/L (12-78); ALBUMIN/GLOBULIN RATIO 0.9 (1.1-1.5); ALKALINE PHOSPHATASE 54 IU/L (46-116); ANION GAP 12 (8-16); ASPARTATE AMINO TRANSFERASE 20 U/L (10-37); BILIRUBIN,TOTAL 0.2 MG/DL (0.1-1.0); BLOOD UREA NITROGEN 42 MG/DL (7-18); BUN/CREATININE RATIO 9.4 (5.4-32.0); CALCIUM 7.6 MG/DL (8.5-10.1); CHLORIDE 113 MMOL/L (99-107); CREATININE 4.48 MG/DL (0.60-1.10); GLUCOSE 125 MG/DL (70-104); MAGNESIUM 1.9 MG/DL (1.5-2.4); POTASSIUM 4.7 MMOL/L (3.5-5.1); SODIUM 145 MMOL/L (135-145); TOTAL CARBON DIOXIDE 19.7 MMOL/L (24-32); TOTAL PROTEIN 6.3 G/DL (6.4-8.2); eGFR 13 ML/MIN
--- NOTE | 2020-07-03 06:46 | NUR ---
patient alert and oriented. complaining of pain because of dejesus catheter. called dr Wei. and order was received to remove dejesus. dejesus wa removed and patient voiced relief.
--- NOTE | 2020-07-03 06:49 | NUR ---
report given to morning nurse and no acute distress at this time
--- NOTE | 2020-07-03 07:10 | NUR ---
PAGER ID: [phone] MESSAGE: Marcos Nails [id number] JOVANA Pt. has critical Hematocrit - H &H 7.4 and 22.0. Thank you- Tona [phone]
[2020-07-03] MEDS: K and/or MAG REPLACEMENT MC SCH ×2 (08:00→20:00)
[2020-07-03] MEDS: atorvastatin 10mg tablet PO SCH (08:46)
[2020-07-03] MEDS ORDERED: fentaNYL/PF 50MCG/1 ML 2ML syringe ONE (12:08)
[2020-07-03] MEDS ORDERED: LIDOcaine Viscous 15ml cup ONE (12:09)
[2020-07-03] MEDS ORDERED: MIDAZolam 5mg/5ml vial ONE (12:09)
[2020-07-03] MEDS ORDERED: PEG 3350/Na sulf,bicarb,Cl/KCl oral sol 4 liter bottle PO ONE (14:00)
--- NOTE | 2020-07-03 14:45 | NUR ---
Patient in room PCU 3012. I have received report from Pattie in GI Lab and had the opportunity to ask questions and assume patient care. Patient is headed back to room 3012C. Patient received two of versed, Biopsy was collected and sent to lab. New Orders CL NO REDS, starts colon prep NOW, patient will go down for colonoscopy at 0900. NPO at midnight. Will continue to monitor.
[2020-07-03 15:14] LABS: BASOPHILS # (AUTO) 0.1 X10'3 (0-0.2); BASOPHILS % (AUTO) 0.9 % (0-1); EOSINOPHILS # (AUTO) 0.1 X10'3 (0-0.9); EOSINOPHILS % (AUTO) 1.1 % (0-6); HEMATOCRIT 22.3 % (42.0-52.0); HEMOGLOBIN 7.4 g/dl (14.0-17.9); LYMPHOCYTES # (AUTO) 1.2 X10'3 (1.1-4.8); LYMPHOCYTES % (AUTO) 20.3 % (21-51); MEAN CORPUSCULAR HEMOGLOBIN 30.5 PG (27.0-31.0); MEAN CORPUSCULAR HGB CONC 33.1 g/dL (33.0-36.5); MEAN CORPUSCULAR VOLUME 92.1 FL (78-98); MEAN PLATELET VOLUME 8.5 FL (7.4-10.4); MONOCYTES # (AUTO) 0.4 X10'3 (0-0.9); MONOCYTES % (AUTO) 7.6 % (2-12); NEUTROPHILS % (AUTO) 70.1 % (42-75); PLATELET COUNT 206 X10'3 (140-440); RED BLOOD COUNT 2.42 X10'6 (4.70-6.10); RED CELL DISTRIBUTION WIDTH 14.1 % (11.5-14.5); WHITE BLOOD COUNT 5.7 X10'3 (4.5-11.0)
--- NOTE | 2020-07-03 18:20 | NUR ---
Patient in room PCU 3012. I have received report from Tona LAM and had the opportunity to ask questions and assume patient care.
--- NOTE | 2020-07-03 18:26 | NUR ---
Gave report to Kay LAM.
[2020-07-03] MEDS: insulin glargine (Lantus) pen - multi-dose SQ SCH (21:00)
[2020-07-04] VITALS (10 sets, daily range): BP systolic 128–171; BP diastolic 40–86
--- NOTE | 2020-07-04 01:42 | NUR ---
Woke patient up to get him to drink the go-lytely, patient upset with nursing and says he can't drink anymore. Educated on the importance of the drink and the test. Will attempt again to get the patient to drink more prep
[2020-07-04] MEDS: pantoprazole 40MG/NS 100ML BAG 100 ML IV SCH ×5 (02:58→19:59)
--- NOTE | 2020-07-04 05:15 | NUR ---
Patient finished Go-lytely prep
--- NOTE | 2020-07-04 06:15 | NUR ---
Problems reprioritized. Patient report given, questions answered & plan of care reviewed with Bailey LAM.
[2020-07-04 06:32] LABS: BASOPHILS % (AUTO) 0.6 % (0-1); EOSINOPHILS # (AUTO) 0.1 X10'3 (0-0.9); HEMATOCRIT 26.6 % (42.0-52.0); LYMPHOCYTES # (AUTO) 1.3 X10'3 (1.1-4.8); LYMPHOCYTES % (AUTO) 16.9 % (21-51); MEAN CORPUSCULAR HEMOGLOBIN 30.7 PG (27.0-31.0); MEAN CORPUSCULAR HGB CONC 33.8 g/dL (33.0-36.5); MEAN PLATELET VOLUME 8.7 FL (7.4-10.4); MONOCYTES # (AUTO) 0.5 X10'3 (0-0.9); MONOCYTES % (AUTO) 6.2 % (2-12); NEUTROPHILS # (AUTO) 5.9 X10'3 (1.8-7.7); NEUTROPHILS % (AUTO) 75.3 % (42-75); PLATELET COUNT 227 X10'3 (140-440); RED BLOOD COUNT 2.92 X10'6 (4.70-6.10); RED CELL DISTRIBUTION WIDTH 14.4 % (11.5-14.5); WHITE BLOOD COUNT 7.9 X10'3 (4.5-11.0)
[2020-07-04 06:50] LABS: ALANINE AMINOTRANSFERASE 94 U/L (12-78); ALBUMIN 3.3 G/DL (3.4-5.0); ALBUMIN/GLOBULIN RATIO 0.9 (1.1-1.5); ALKALINE PHOSPHATASE 66 IU/L (46-116); ANION GAP 14 (8-16); ASPARTATE AMINO TRANSFERASE 146 U/L (10-37); BILIRUBIN,TOTAL 0.3 MG/DL (0.1-1.0); BLOOD UREA NITROGEN 29 MG/DL (7-18); BUN/CREATININE RATIO 7.5 (5.4-32.0); CALCIUM 7.7 MG/DL (8.5-10.1); CHLORIDE 117 MMOL/L (99-107); CREATININE 3.85 MG/DL (0.60-1.10); GLUCOSE 119 MG/DL (70-104); MAGNESIUM 1.7 MG/DL (1.5-2.4); POTASSIUM 4.1 MMOL/L (3.5-5.1); SODIUM 153 MMOL/L (135-145); TOTAL CARBON DIOXIDE 21.7 MMOL/L (24-32); TOTAL PROTEIN 6.8 G/DL (6.4-8.2); eGFR 15 ML/MIN
[2020-07-04] MEDS: normal saline 1000ml 1,000 ML IV SCH ×3 (07:25→22:36)
[2020-07-04] MEDS: K and/or MAG REPLACEMENT MC SCH ×2 (08:00→20:00)
[2020-07-04] MEDS: atorvastatin 10mg tablet PO SCH (08:00)
--- NOTE | 2020-07-04 08:07 | NUR ---
Patient left for GI Lab.
[2020-07-04] MEDS ORDERED: fentaNYL/PF 50MCG/1 ML 2ML syringe ONE (08:32)
[2020-07-04] MEDS ORDERED: MIDAZolam 5mg/5ml vial ONE (08:32)
--- NOTE | 2020-07-04 11:14 | NUR ---
patient back from GI lab.
--- NOTE | 2020-07-04 14:33 | NUR ---
Orders for a full liquid diet put in per Dr. Christie and to advance patient's diet as tolerated.
[2020-07-04 15:40] LABS: BASOPHILS # (AUTO) 0.1 X10'3 (0-0.2); BASOPHILS % (AUTO) 0.7 % (0-1); EOSINOPHILS # (AUTO) 0.1 X10'3 (0-0.9); EOSINOPHILS % (AUTO) 1.2 % (0-6); HEMATOCRIT 25.5 % (42.0-52.0); HEMOGLOBIN 8.6 g/dl (14.0-17.9); LYMPHOCYTES # (AUTO) 1.6 X10'3 (1.1-4.8); LYMPHOCYTES % (AUTO) 20.8 % (21-51); MEAN CORPUSCULAR HEMOGLOBIN 30.6 PG (27.0-31.0); MEAN CORPUSCULAR HGB CONC 33.8 g/dL (33.0-36.5); MEAN CORPUSCULAR VOLUME 90.5 FL (78-98); MEAN PLATELET VOLUME 8.6 FL (7.4-10.4); MONOCYTES # (AUTO) 0.6 X10'3 (0-0.9); MONOCYTES % (AUTO) 7.4 % (2-12); NEUTROPHILS # (AUTO) 5.3 X10'3 (1.8-7.7); NEUTROPHILS % (AUTO) 69.9 % (42-75); PLATELET COUNT 206 X10'3 (140-440); RED BLOOD COUNT 2.82 X10'6 (4.70-6.10); RED CELL DISTRIBUTION WIDTH 14.8 % (11.5-14.5); WHITE BLOOD COUNT 7.6 X10'3 (4.5-11.0)
--- NOTE | 2020-07-04 18:14 | NUR ---
Problems reprioritized. Patient report given, questions answered & plan of care reviewed with GENARO Butcher. Patient stable at transfer of care.
[2020-07-04] MEDS: insulin glargine (Lantus) pen - multi-dose SQ SCH (21:00)
[2020-07-04] MEDS ORDERED: LORazepam 0.5 MG tablet PO PRN (23:30)
[2020-07-05] MEDS: dextrose 5%-water 1,000 ML IV SCH ×4 (00:03→22:44)
[2020-07-05 02:00] VITALS: BP 154/62
[2020-07-05 06:36] LABS: ALANINE AMINOTRANSFERASE 82 U/L (12-78); ALBUMIN 2.8 G/DL (3.4-5.0); ALBUMIN/GLOBULIN RATIO 0.8 (1.1-1.5); ALKALINE PHOSPHATASE 68 IU/L (46-116); ANION GAP 9 (8-16); ASPARTATE AMINO TRANSFERASE 67 U/L (10-37); BILIRUBIN,TOTAL 0.2 MG/DL (0.1-1.0); BLOOD UREA NITROGEN 18 MG/DL (7-18); BUN/CREATININE RATIO 5.6 (5.4-32.0); CHLORIDE 113 MMOL/L (99-107); CREATININE 3.23 MG/DL (0.60-1.10); GLUCOSE 153 MG/DL (70-104); MAGNESIUM 1.2 MG/DL (1.5-2.4); POTASSIUM 3.9 MMOL/L (3.5-5.1); SODIUM 145 MMOL/L (135-145); TOTAL CARBON DIOXIDE 22.7 MMOL/L (24-32); TOTAL PROTEIN 6.1 G/DL (6.4-8.2); eGFR 19 ML/MIN
[2020-07-05 06:39] LABS: BASOPHILS % (AUTO) 0.4 % (0-1); EOSINOPHILS # (AUTO) 0.1 X10'3 (0-0.9); EOSINOPHILS % (AUTO) 1.2 % (0-6); HEMATOCRIT 25.1 % (42.0-52.0); HEMOGLOBIN 8.7 g/dl (14.0-17.9); LYMPHOCYTES # (AUTO) 0.9 X10'3 (1.1-4.8); LYMPHOCYTES % (AUTO) 12.5 % (21-51); MEAN CORPUSCULAR HEMOGLOBIN 31.1 PG (27.0-31.0); MEAN CORPUSCULAR HGB CONC 34.8 g/dL (33.0-36.5); MEAN CORPUSCULAR VOLUME 89.4 FL (78-98); MEAN PLATELET VOLUME 8.8 FL (7.4-10.4); MONOCYTES # (AUTO) 0.4 X10'3 (0-0.9); MONOCYTES % (AUTO) 5.4 % (2-12); NEUTROPHILS # (AUTO) 5.8 X10'3 (1.8-7.7); NEUTROPHILS % (AUTO) 80.5 % (42-75); PLATELET COUNT 196 X10'3 (140-440); RED BLOOD COUNT 2.81 X10'6 (4.70-6.10); RED CELL DISTRIBUTION WIDTH 14.4 % (11.5-14.5); WHITE BLOOD COUNT 7.2 X10'3 (4.5-11.0)
[2020-07-05 07:00] VITALS: BP 171/56
[2020-07-05] MEDS: atorvastatin 10mg tablet PO SCH (07:58)
[2020-07-05] MEDS: pantoprazole 40mg Tablet.DR PO SCH (07:59)
[2020-07-05] MEDS: clopidogrel 75mg tablet PO SCH (07:59)
[2020-07-05] MEDS: K and/or MAG REPLACEMENT MC SCH ×2 (08:05→20:00)
[2020-07-05 11:00] VITALS: BP 149/73
[2020-07-05 15:42] LABS: BASOPHILS # (AUTO) 0.1 X10'3 (0-0.2); BASOPHILS % (AUTO) 0.7 % (0-1); EOSINOPHILS # (AUTO) 0.1 X10'3 (0-0.9); EOSINOPHILS % (AUTO) 0.9 % (0-6); HEMATOCRIT 27.2 % (42.0-52.0); HEMOGLOBIN 9.4 g/dl (14.0-17.9); LYMPHOCYTES # (AUTO) 1.1 X10'3 (1.1-4.8); LYMPHOCYTES % (AUTO) 14.1 % (21-51); MEAN CORPUSCULAR HEMOGLOBIN 31.2 PG (27.0-31.0); MEAN CORPUSCULAR HGB CONC 34.7 g/dL (33.0-36.5); MEAN CORPUSCULAR VOLUME 89.9 FL (78-98); MEAN PLATELET VOLUME 8.5 FL (7.4-10.4); MONOCYTES # (AUTO) 0.4 X10'3 (0-0.9); MONOCYTES % (AUTO) 5.6 % (2-12); NEUTROPHILS # (AUTO) 6.3 X10'3 (1.8-7.7); NEUTROPHILS % (AUTO) 78.7 % (42-75); PLATELET COUNT 210 X10'3 (140-440); RED BLOOD COUNT 3.02 X10'6 (4.70-6.10); RED CELL DISTRIBUTION WIDTH 14.8 % (11.5-14.5); WHITE BLOOD COUNT 7.9 X10'3 (4.5-11.0)
--- NOTE | 2020-07-05 18:30 | NUR ---
Patient in room PCU 3012. I have received report from ABEL and had the opportunity to ask questions and assume patient care.
[2020-07-05 19:00] VITALS: BP 179/50
[2020-07-05] MEDS: insulin glargine (Lantus) pen - multi-dose SQ SCH (20:31)
[2020-07-05 22:00] VITALS: BP 165/59
[2020-07-06 02:00] VITALS: BP 129/57
[2020-07-06] MEDS: dextrose 5%-water 1,000 ML IV SCH ×2 (05:04→15:30)
[2020-07-06 06:00] VITALS: BP 135/60
--- NOTE | 2020-07-06 06:32 | NUR ---
Problems reprioritized. Patient report given, questions answered & plan of care reviewed with
--- NOTE | 2020-07-06 06:37 | NUR ---
Patient in room PCU 3012. I have received report from Mireya LAM and had the opportunity to ask questions and assume patient care.
[2020-07-06 07:29] LABS: ALANINE AMINOTRANSFERASE 52 U/L (12-78); ALBUMIN 2.5 G/DL (3.4-5.0); ALBUMIN/GLOBULIN RATIO 0.7 (1.1-1.5); ALKALINE PHOSPHATASE 61 IU/L (46-116); ANION GAP 12 (8-16); ASPARTATE AMINO TRANSFERASE 24 U/L (10-37); BILIRUBIN,TOTAL 0.3 MG/DL (0.1-1.0); BLOOD UREA NITROGEN 14 MG/DL (7-18); BUN/CREATININE RATIO 4.8 (5.4-32.0); CHLORIDE 108 MMOL/L (99-107); CREATININE 2.93 MG/DL (0.60-1.10); GLUCOSE 145 MG/DL (70-104); MAGNESIUM 1.1 MG/DL (1.5-2.4); SODIUM 142 MMOL/L (135-145); TOTAL CARBON DIOXIDE 22.4 MMOL/L (24-32); TOTAL PROTEIN 5.9 G/DL (6.4-8.2); eGFR 21 ML/MIN
--- NOTE | 2020-07-06 07:45 | NUR ---
Phone call with Dr Castro, notified of critical K+ 3.0, orders received to replace per protocol. Will continue to monitor.
[2020-07-06] MEDS: K and/or MAG REPLACEMENT MC SCH ×2 (08:00→20:00)
[2020-07-06] MEDS ORDERED: potassium Cl 20 mEq SR tablet PO PRN (09:35)
[2020-07-06] MEDS: clopidogrel 75mg tablet PO SCH (09:37)
[2020-07-06] MEDS: atorvastatin 10mg tablet PO SCH (09:38)
[2020-07-06] MEDS: pantoprazole 40mg Tablet.DR PO SCH (09:38)
[2020-07-06] MEDS: potassium Cl 20 mEq SR tablet PO PRN ×3 (10:17→19:41)
[2020-07-06 11:00] VITALS: BP 141/53
[2020-07-06 15:00] VITALS: BP 135/53
[2020-07-06] MEDS: magnesium Cl slow-release 64mg tablet PO PRN ×2 (15:35→19:42)
--- NOTE | 2020-07-06 15:51 | NUR ---
Initial: Pt admit DX GIB s/p EGD, CAD, DEDE/CKD improving, L hydronephrosis, and hypernatremia per EMR. Hx T2DM w/ A1C less than 7. Pt PO 75-100% avg prior clears and current full liquid diet decent given age and DX. Receiving electrolyte replacement per protocol. LBM 07/04. Will monitor for diet advancement and additional protein/kcal needs this admit. Rec: 1. advance diet as medically indicated to carb controlled 2. monitor for ONS needs 3. bowel care per rx 4. weekly wts Addendum: 07/06/20 at [address] Amended: Links added.
[2020-07-06 18:00] VITALS: BP 159/60
--- NOTE | 2020-07-06 18:31 | NUR ---
Problems reprioritized. Patient report given, questions answered & plan of care reviewed with Prince LAM.
--- NOTE | 2020-07-06 19:15 | NUR ---
I have received report from GENARO Goetz and had the opportunity to ask questions and assume patient care.
[2020-07-06] MEDS: insulin glargine (Lantus) pen - multi-dose SQ SCH (21:00)
--- NOTE | 2020-07-06 21:00 | NUR ---
Patients IV keeps alarming, due to being placed in the AC. I have instructed the patient to keep his arm straight, I have also examined placement and flushed it. The patient is requesting for fluids to be stopped, and is not wanting another one placed. I will discuss this with night time hospitalist.
[2020-07-06 22:00] VITALS: BP 93/69
[2020-07-06 23:08] LABS: MAGNESIUM 1.3 MG/DL (1.5-2.4); POTASSIUM 4.5 MMOL/L (3.5-5.1)
[2020-07-07 02:00] VITALS: BP 124/47
[2020-07-07 06:00] VITALS: BP 145/51
--- NOTE | 2020-07-07 06:17 | NUR ---
Problems reprioritized. Patient report given, questions answered & plan of care reviewed with GENARO Garcia.
[2020-07-07] MEDS: pantoprazole 40mg Tablet.DR PO SCH (07:10)
[2020-07-07] MEDS: clopidogrel 75mg tablet PO SCH (07:10)
[2020-07-07] MEDS: atorvastatin 10mg tablet PO SCH (07:10)
[2020-07-07] MEDS: K and/or MAG REPLACEMENT MC SCH ×2 (07:11→20:00)
[2020-07-07] MEDS: magnesium Cl slow-release 64mg tablet PO PRN ×2 (07:14→19:18)
[2020-07-07 07:50] LABS: ALBUMIN 2.9 G/DL (3.4-5.0); ANION GAP 11 (8-16); BILIRUBIN,TOTAL 0.3 MG/DL (0.1-1.0); BLOOD UREA NITROGEN 13 MG/DL (7-18); BUN/CREATININE RATIO 4.8 (5.4-32.0); CALCIUM 7.9 MG/DL (8.5-10.1); CHLORIDE 112 MMOL/L (99-107); CREATININE 2.69 MG/DL (0.60-1.10); GLUCOSE 115 MG/DL (70-104); MAGNESIUM 1.3 MG/DL (1.5-2.4); POTASSIUM 4.5 MMOL/L (3.5-5.1); SODIUM 145 MMOL/L (135-145); TOTAL CARBON DIOXIDE 22.2 MMOL/L (24-32); TOTAL PROTEIN 6.5 G/DL (6.4-8.2); eGFR 23 ML/MIN
[2020-07-07 07:51] LABS: ALANINE AMINOTRANSFERASE 48 U/L (12-78); ALBUMIN/GLOBULIN RATIO 0.8 (1.1-1.5); ALKALINE PHOSPHATASE 63 IU/L (46-116); ASPARTATE AMINO TRANSFERASE 20 U/L (10-37)
[2020-07-07 11:00] VITALS: BP 118/69
[2020-07-07] MEDS: sodium chloride 0.45% 1,000 ML IV SCH ×2 (13:38→19:26)
[2020-07-07 15:00] VITALS: BP 95/62
--- NOTE | 2020-07-07 15:30 | NUR ---
Pt was alert and oriented x4 all day. Ambulating to commode independently. Voiding and BM today. IV fluids changed to 1/5ns @100. Reprot given to 340 nurse and transferred vai wheelchair by RN and Aid.
--- NOTE | 2020-07-07 17:50 | NUR ---
I have received report from Bailey LAM PCU at 1730 and had the opportunity to ask questions and assume patient care once on Surgical unit. Pt arrived at 1750, to room 340B. Pt oriented to room, A&Ox4, in stable condition, no c/o.
--- NOTE | 2020-07-07 18:20 | NUR ---
Problems reprioritized. Patient report given, questions answered & plan of care reviewed with Prince LAM.
--- NOTE | 2020-07-07 18:30 | NUR ---
Patient in room [facility] 340. I have received report from GENARO Goetz and had the opportunity to ask questions and assume patient care.
[2020-07-07 20:00] VITALS: BP 122/66
[2020-07-07] MEDS: insulin glargine (Lantus) pen - multi-dose SQ SCH (21:00)
[2020-07-08] VITALS: BP 153/64
[2020-07-08] MEDS: sodium chloride 0.45% 1,000 ML IV SCH (04:52)
[2020-07-08 06:32] LABS: MAGNESIUM 1.4 MG/DL (1.5-2.4); POTASSIUM 4.1 MMOL/L (3.5-5.1)
[2020-07-08 07:00] VITALS: BP 129/89
[2020-07-08] MEDS: magnesium Cl slow-release 64mg tablet PO PRN (07:42)
[2020-07-08] MEDS: pantoprazole 40mg Tablet.DR PO SCH (07:43)
[2020-07-08] MEDS: clopidogrel 75mg tablet PO SCH (07:43)
[2020-07-08] MEDS: atorvastatin 10mg tablet PO SCH (07:43)
[2020-07-08] MEDS: K and/or MAG REPLACEMENT MC SCH (07:50)
--- NOTE | 2020-07-08 08:58 | NUR ---
DM consult: Pt with A1c 6.7%, DM education not warranted at this time. Will continue to follow. Addendum: 07/08/20 at [address] Amended: Links added.
[2020-07-08 11:19] LABS: BASOPHILS % (AUTO) 0.8 % (0-1); EOSINOPHILS # (AUTO) 0.1 X10'3 (0-0.9); HEMATOCRIT 26.8 % (42.0-52.0); HEMOGLOBIN 8.9 g/dl (14.0-17.9); LYMPHOCYTES # (AUTO) 1.1 X10'3 (1.1-4.8); LYMPHOCYTES % (AUTO) 18.3 % (21-51); MEAN CORPUSCULAR HEMOGLOBIN 30.3 PG (27.0-31.0); MEAN CORPUSCULAR HGB CONC 33.1 g/dL (33.0-36.5); MEAN CORPUSCULAR VOLUME 91.4 FL (78-98); MEAN PLATELET VOLUME 8.4 FL (7.4-10.4); MONOCYTES # (AUTO) 0.6 X10'3 (0-0.9); MONOCYTES % (AUTO) 9.7 % (2-12); NEUTROPHILS % (AUTO) 69.2 % (42-75); PLATELET COUNT 219 X10'3 (140-440); RED BLOOD COUNT 2.93 X10'6 (4.70-6.10); RED CELL DISTRIBUTION WIDTH 14.6 % (11.5-14.5); WHITE BLOOD COUNT 5.8 X10'3 (4.5-11.0)
[2020-07-08 11:28] LABS: ALANINE AMINOTRANSFERASE 48 U/L (12-78); ALBUMIN 2.8 G/DL (3.4-5.0); ALBUMIN/GLOBULIN RATIO 0.8 (1.1-1.5); ALKALINE PHOSPHATASE 66 IU/L (46-116); ANION GAP 11 (8-16); ASPARTATE AMINO TRANSFERASE 30 U/L (10-37); BILIRUBIN,TOTAL 0.2 MG/DL (0.1-1.0); BLOOD UREA NITROGEN 16 MG/DL (7-18); BUN/CREATININE RATIO 7.5 (5.4-32.0); CHLORIDE 109 MMOL/L (99-107); CREATININE 2.14 MG/DL (0.60-1.10); GLUCOSE 146 MG/DL (70-104); POTASSIUM 4.4 MMOL/L (3.5-5.1); SODIUM 145 MMOL/L (135-145); TOTAL CARBON DIOXIDE 24.9 MMOL/L (24-32); TOTAL PROTEIN 6.4 G/DL (6.4-8.2); eGFR 30 ML/MIN
[2020-07-08 12:03] VITALS: BP 181/59
[2020-07-08] MEDS ORDERED: GLIP5TAB13 PO (12:21)
--- NOTE | 2020-07-08 13:45 | NUR ---
CALLED RX FOR GLIPIZIDE INTO [address]
--- NOTE | 2020-07-08 13:47 | NUR ---
PT DISCHARGED IN STABLE CONDITION. PT LEFT IN PRIVATE VEHICLE. IV DC CANULA INTACT. ALL BELONGINGS IN HAND. FOLLOW UP INSTRUCTIONS GIVEN, PT VERBALIZED UNDERSTANDING. ALL QUESTIONS ANSWERED. Addendum: 07/08/20 at 1348 by Evelyn Bartlett RN Amended: Links added.
== END 2020-07-08 14:20 | disposition home or self-care (01) | DRG 378 ==
LOC: ER 12:06 → ED HOLD 15:25 → PCU 3S 17:36 → SUR 3N 07-07 17:43
PROVIDERS: ADMIT Internal Medicine; ATTEND Internal Medicine
PROC: 30233N1 Transfusion of Nonautologous Red Blood Cells into Peripheral Vein, Percutaneous Approach (ICD-10-PCS; principal; 2020-07-03)
PROC: 0DB68ZX Excision of Stomach, Via Natural or Artificial Opening Endoscopic, Diagnostic (ICD-10-PCS; 2020-07-03)
PROC: 0DBN8ZX Excision of Sigmoid Colon, Via Natural or Artificial Opening Endoscopic, Diagnostic (ICD-10-PCS; 2020-07-04)
PROC: 0DBL8ZX Excision of Transverse Colon, Via Natural or Artificial Opening Endoscopic, Diagnostic (ICD-10-PCS; 2020-07-04)
DX: K29.71 Gastritis, unspecified, with bleeding (principal); N17.9 Acute kidney failure, unspecified; D62 Acute posthemorrhagic anemia; N13.30 Unspecified hydronephrosis; E87.0 Hyperosmolality and hypernatremia; Q43.8 Other specified congenital malformations of intestine; R31.9 Hematuria, unspecified; I12.9 Hypertensive chronic kidney disease with stage 1 through stage 4 chronic kidney disease, or unspecified chronic kidney disease; E11.22 Type 2 diabetes mellitus with diabetic chronic kidney disease; N18.9 Chronic kidney disease, unspecified; F41.9 Anxiety disorder, unspecified; K31.89 Other diseases of stomach and duodenum; K20.90 Esophagitis, unspecified without bleeding; M54.9 Dorsalgia, unspecified; E78.00 Pure hypercholesterolemia, unspecified; K63.5 Polyp of colon; K64.8 Other hemorrhoids; K58.9 Irritable bowel syndrome, unspecified; E86.0 Dehydration; F17.210 Nicotine dependence, cigarettes, uncomplicated; G89.29 Other chronic pain; I25.10 Atherosclerotic heart disease of native coronary artery without angina pectoris; Z95.5 Presence of coronary angioplasty implant and graft; Z71.6 Tobacco abuse counseling; Z79.02 Long term (current) use of antithrombotics/antiplatelets
CPT/HCPCS: 36415; 36430; 43239; 45380; 45385; 74176; 76775; 80053; 81001; 82271; 82948; 83036; 83735; 84132; 85025; 85610; 86885; 86900; 86901; 86920; 87081; 87088; 93005; 94760; 96361; 96374; 97161; 97530; 99152; 99153; 99285; A4620; C1773; C9113; G0378; J1815; J2250; J2405; J3010; J7030; J7040; J7070; P9016

== ENCOUNTER 2021-07-29 18:47 | Inpatient (IN) | payer MEDICARE, MEDICAID ==
[~2021-07-29] VITALS: Ht 180.3 cm; Wt 70.5 kg
[~2021-07-29 18:47] MED LIST changes: +ALBU8.5H17 PO; -ASPI81TA52 PO; -BACI28OI9 TP; -CLOP75TA33 PO; +CLOP75TA34 PO; -CYCL-1 PO; -DOCU-28 PO; +FLO0.4C PO; +HYDR-3964 PO; -HYDR-4383 PO; +INSU100V9 SQ; -LISI-600 PO; +METF-436 PO; -METF-438 PO; +METO-395 PO; -METO25TA6 PO; -NITR0.4T51 SL; -ONDA4TAB12 PO; +PANT20TA18 PO; +ROSU40TA22 PO; -SIMV40TA PO; -TAMS0.4C32 PO
[2021-07-29] MEDS ORDERED: normal saline 1000ML IV soln IVB ONE (19:15)
[2021-07-29 19:31] LABS: BASOPHILS # (AUTO) 0.1 X10'3 (0-0.2); BASOPHILS % (AUTO) 0.7 % (0-1); EOSINOPHILS % (AUTO) 0.1 % (0-6); HEMATOCRIT 30.7 % (42.0-52.0); HEMOGLOBIN 9.7 g/dl (14.0-17.9); LYMPHOCYTES # (AUTO) 0.9 X10'3 (1.1-4.8); LYMPHOCYTES % (AUTO) 9.4 % (21-51); MEAN CORPUSCULAR HEMOGLOBIN 25.2 PG (27.0-31.0); MEAN CORPUSCULAR HGB CONC 31.7 g/dL (33.0-36.5); MEAN CORPUSCULAR VOLUME 79.5 FL (78-98); MEAN PLATELET VOLUME 8.1 FL (7.4-10.4); MONOCYTES # (AUTO) 0.5 X10'3 (0-0.9); MONOCYTES % (AUTO) 5.5 % (2-12); NEUTROPHILS # (AUTO) 7.8 X10'3 (1.8-7.7); NEUTROPHILS % (AUTO) 84.3 % (42-75); PLATELET COUNT 276 X10'3 (140-440); RED BLOOD COUNT 3.86 X10'6 (4.70-6.10); RED CELL DISTRIBUTION WIDTH 16.6 % (11.5-14.5); WHITE BLOOD COUNT 9.3 X10'3 (4.5-11.0)
[2021-07-29 19:46] LABS: ALANINE AMINOTRANSFERASE 25 U/L (12-78); ALKALINE PHOSPHATASE 53 IU/L (46-116); ANION GAP 13 (8-16); ASPARTATE AMINO TRANSFERASE 19 U/L (10-37); BILIRUBIN,TOTAL 0.1 MG/DL (0.1-1.0); BLOOD UREA NITROGEN 24 MG/DL (7-18); BUN/CREATININE RATIO 12.3 (5.4-32.0); CALCIUM 9.2 MG/DL (8.5-10.1); CHLORIDE 103 MMOL/L (99-107); CREATININE 1.95 MG/DL (0.60-1.10); GLUCOSE 146 MG/DL (70-104); MAGNESIUM 1.1 MG/DL (1.5-2.4); SODIUM 139 MMOL/L (135-145); TOTAL CARBON DIOXIDE 23.1 MMOL/L (24-32); TOTAL PROTEIN 8.1 G/DL (6.4-8.2); eGFR 33 ML/MIN
[2021-07-29 19:53] LABS: POTASSIUM 6.1 MMOL/L (3.5-5.1)
[2021-07-29] MEDS ORDERED: sodium polystyrene sulfonate 15gm/60ml oral suspension PO ONE (20:00)
[2021-07-29] MEDS ORDERED: dextrose 50%-water 50ml dispensing syringe IV ONE (20:00)
[2021-07-29] MEDS ORDERED: insulin regular, human U-100 3ml vial - multi-dose IV ONE (20:00)
[2021-07-29] MEDS ORDERED: potassium Cl 20 mEq SR tablet PO PRN ×2 (21:40)
[2021-07-29] MEDS ORDERED: magnesium 2GM in 50ml NS 50 ML IV PRN (21:40)
[2021-07-29] MEDS ORDERED: morphine 2 MG/ML inj. syringe IV PRN (21:40)
[2021-07-29] MEDS ORDERED: acetaminophen 325mg tablet PO PRN ×2 (21:40)
[2021-07-29] MEDS ORDERED: HYDROcodone/acetaminophen 5mg/325mg tablet PO PRN (21:40)
[2021-07-29] MEDS ORDERED: potassium CL 10mEq/100ml bag 100 ML IV PRN (21:40)
[2021-07-29] MEDS ORDERED: ondansetron/PF 4mg/2ml inj IV PRN (21:40)
[2021-07-29] MEDS ORDERED: magnesium 4gm in 100ml NS 100 ML IV PRN (21:40)
[2021-07-29] MEDS ORDERED: normal saline 1000ml 1,000 ML IV SCH (21:40)
[2021-07-29] MEDS ORDERED: magnesium Cl slow-release 64mg tablet PO PRN (21:40)
[2021-07-29] MEDS ORDERED: dextrose 50%-water 50ml dispensing syringe IV PRN ×2 (22:10)
[2021-07-29] MEDS ORDERED: DEXTROSE 15 GM of carb/4 tabs (each vial/BOTTLE has 4 tablets) PO PRN ×2 (22:10)
[2021-07-29] MEDS ORDERED: MESSAGE TO PHARMACY PO ONE (22:10)
[2021-07-29] MEDS ORDERED: glucagon, human recombinant 1mg kit SUBCUT PRN (22:10)
[2021-07-29] MEDS ORDERED: insulin Lispro (HumaLOG) vial - multi-dose SQ SCH (22:10)
[2021-07-29] MEDS ORDERED: PANT40TA54 PO (22:12)
[2021-07-29] MEDS ORDERED: albuterol 2.5 MG/3 ML nebule NEB PRN (22:20)
[2021-07-29 23:25] LABS: POTASSIUM 4.8 MMOL/L (3.5-5.1)
--- NOTE | 2021-07-29 23:55 | NUR ---
Patient in room ED 13. I have received report from ZACK LAM and had the opportunity to ask questions and assume patient care.
[2021-07-30 00:25] VITALS: BP 124/57
[2021-07-30 02:00] VITALS: BP 154/59
[2021-07-30 02:10] LABS: ALANINE AMINOTRANSFERASE 26 U/L (12-78); ALBUMIN 3.7 G/DL (3.4-5.0); ALBUMIN/GLOBULIN RATIO 0.9 (1.1-1.5); ALKALINE PHOSPHATASE 52 IU/L (46-116); ANION GAP 13 (8-16); ASPARTATE AMINO TRANSFERASE 23 U/L (10-37); BILIRUBIN,TOTAL 0.1 MG/DL (0.1-1.0); BLOOD UREA NITROGEN 26 MG/DL (7-18); BUN/CREATININE RATIO 13.5 (5.4-32.0); CALCIUM 9.1 MG/DL (8.5-10.1); CHLORIDE 107 MMOL/L (99-107); CREATININE 1.92 MG/DL (0.60-1.10); GLUCOSE 136 MG/DL (70-104); POTASSIUM 4.8 MMOL/L (3.5-5.1); SODIUM 143 MMOL/L (135-145); TOTAL CARBON DIOXIDE 23.4 MMOL/L (24-32); TOTAL PROTEIN 7.6 G/DL (6.4-8.2); eGFR 34 ML/MIN
[2021-07-30 06:00] VITALS: BP 162/52
--- NOTE | 2021-07-30 06:01 | NUR ---
Problems reprioritized. Patient report given, questions answered & plan of care reviewed with SOPHY LAM .
[2021-07-30] MEDS ORDERED: tamsulosin 0.4mg capsule PO SCH (08:00)
[2021-07-30] MEDS ORDERED: K and/or MAG REPLACEMENT MC SCH (08:00)
[2021-07-30] MEDS ORDERED: clopidogrel 75mg tablet PO SCH (08:00)
[2021-07-30] MEDS ORDERED: heparin, porcine 5000 units/ml vial SQ SCH (08:00)
[2021-07-30] MEDS ORDERED: pantoprazole 40mg Tablet.DR PO SCH (08:00)
[2021-07-30] MEDS ORDERED: atorvastatin 20mg tablet PO SCH (08:00)
[2021-07-30] MEDS ORDERED: metoprolol succinate 25mg (24-HOUR) SR. Tablet PO SCH (08:00)
[2021-07-30 08:28] LABS: BASOPHILS # (AUTO) 0.1 X10'3 (0-0.2); BASOPHILS % (AUTO) 0.7 % (0-1); EOSINOPHILS # (AUTO) 0.1 X10'3 (0-0.9); EOSINOPHILS % (AUTO) 1.4 % (0-6); HEMATOCRIT 28.8 % (42.0-52.0); HEMOGLOBIN 9.2 g/dl (14.0-17.9); LYMPHOCYTES # (AUTO) 1.2 X10'3 (1.1-4.8); LYMPHOCYTES % (AUTO) 15.6 % (21-51); MEAN CORPUSCULAR HEMOGLOBIN 25.3 PG (27.0-31.0); MEAN CORPUSCULAR HGB CONC 32.1 g/dL (33.0-36.5); MEAN CORPUSCULAR VOLUME 78.7 FL (78-98); MEAN PLATELET VOLUME 8.9 FL (7.4-10.4); MONOCYTES # (AUTO) 0.6 X10'3 (0-0.9); MONOCYTES % (AUTO) 8.1 % (2-12); NEUTROPHILS # (AUTO) 5.7 X10'3 (1.8-7.7); NEUTROPHILS % (AUTO) 74.2 % (42-75); PLATELET COUNT 260 X10'3 (140-440); RED BLOOD COUNT 3.65 X10'6 (4.70-6.10); RED CELL DISTRIBUTION WIDTH 16.9 % (11.5-14.5); WHITE BLOOD COUNT 7.7 X10'3 (4.5-11.0)
--- NOTE | 2021-07-30 14:35 | NUR ---
Pt. provided with discharge instructions, with no further questions. DC time 1133.
[2021-07-30] MEDS ORDERED: insulin glargine (Lantus) pen - multi-dose SQ SCH (21:00)
== END 2021-07-30 11:35 | disposition home or self-care (01) | DRG 641 ==
LOC: ER 18:48 → ED HOLD 21:42 → MED 3N 07-30 01:06
PROVIDERS: ADMIT Internal Medicine; ATTEND Family Medicine
DX: E87.5 Hyperkalemia (principal); I25.10 Atherosclerotic heart disease of native coronary artery without angina pectoris; E11.22 Type 2 diabetes mellitus with diabetic chronic kidney disease; E11.51 Type 2 diabetes mellitus with diabetic peripheral angiopathy without gangrene; E78.00 Pure hypercholesterolemia, unspecified; E78.5 Hyperlipidemia, unspecified; F17.210 Nicotine dependence, cigarettes, uncomplicated; I12.9 Hypertensive chronic kidney disease with stage 1 through stage 4 chronic kidney disease, or unspecified chronic kidney disease; N18.30 Chronic kidney disease, stage 3 unspecified; G89.29 Other chronic pain; M54.9 Dorsalgia, unspecified; Z95.5 Presence of coronary angioplasty implant and graft; Z71.6 Tobacco abuse counseling
CPT/HCPCS: 36415; 71045; 80053; 82948; 83036; 83735; 84132; 84484; 85025; 87081; 93005; 93306; 93880; 96361; 96374; 96375; 99285; G0378; J1644; J1815; J3490; J7030

== ENCOUNTER 2024-11-29 08:31 | Emergency (ER) | payer MEDICARE, MEDICAID ==
[~2024-11-29] VITALS: Ht 180.3 cm; Wt 68.2 kg
[~2024-11-29 08:31] MED LIST changes: -FLO0.4C PO; -PANT20TA18 PO; +PANT40TA54 PO; -ROSU40TA22 PO; +ROSU40TA89 PO; +TAMS-55 PO
[2024-11-29 08:36] VITALS: BP 121/58; PULSE 74; RESP 16; TEMP 97.4; O2SAT 99
--- NOTE | 2024-11-29 09:14 | RADIOLOGY REPORT ---
[facility] EXAMINATION: DI RIBS,BILAT 3VW MIN INDICATION: trauma COMPARISON: None TECHNIQUE: Frontal view of the chest and 4 views of the right ribs history FINDINGS: No focal consolidation, pleural effusion or significant pneumothorax. Normal cardiomediastinal silhou ette. Atherosclerotic vascular calcifications of the thoracic aorta are noted. No displaced right rib fracture. IMPRESSION: No acute cardiopulmonary disease. No displaced right rib fracture.
[2024-11-29] MEDS ORDERED: LIDO-52 TOP (09:29)
--- NOTE | 2024-11-29 09:30 | Physician Documentation ---
History of Present Illness ~ Chief Complaint: Rib pain Stated Complaint: FALL RIB PAIN Time Seen by MD: 09:18 Primary Medical Doctor: Dr. Delgadillo Source: patient Mode of Arrival: POV Exam Limitations: no limitations HPI 84-year-old male with history of fall one week ago complaining of left lower lateral rib pain. Patient states it is painful when he takes a deep breath and with movement. Patient is on Plavix and he did take some ibuprofen at one point but then was told not to. He does have Tylenol at home. Patient was concerned for rib fracture. Feel in the home he did not hit anything that fell on carpet. Patient did not lose consciousness. Patient does not endorse head strike Tetanus within 5 Years?: No Allergies: Coded Allergies: No Known Allergies (Unverified , 11/29/24) Active Prescriptions See Medication Reconciliation Form. Medication Reconciliation Scheduled Clopidogrel Bisulfate (Clopidogrel), 1 TAB PO DAILY, (Reported) Insulin Glargine,Hum.rec.anlog (Lantus), 14 UNITS SQ HS, (Reported) Lidocaine (Lidoderm), 1 PATCH TOP DAILY Metformin Hcl (Metformin Hcl), 2 TAB PO Q12H, (Reported) Metoprolol Succinate (Metoprolol Succinate), 1 TAB PO DAILY, (Reported) Pantoprazole Sodium (Pantoprazole Sodium), 1 TAB PO DAILY, (Reported) Rosuvastatin Calcium (Rosuvastatin Calcium), 1 TAB PO DAILY, (Reported) Tamsulosin Hcl* (Flomax*), 1 CAP PO DAILY, (Reported) Scheduled PRN Albuterol Sulfate (Proair Hfa), 2 PUFFS PO Q4H PRN for SOB or wheezing, (Reported) Hydrocodone Bit/Acetaminophen (Hydrocodon-Acetaminophen 5-325), 1 TAB PO BID PRN for moderate or severe pain 4-10, (Reported) Past Medical History Past Medical History: Vertigo, Coronary Artery Disease, High Cholesterol, Hypertension, GI Bleed, Diabetes, Chronic Back Pain, *CANCER* Past Surgical History: angioplasty, other Other Past Family History: NONCONTRIBUTORY Alcohol Use: Occasionally Drug Use: none Lives with: Family Lives In: Home Occupation: retired Review of Systems All Other Systems at this time: Reviewed and Negative Respiratory: Reports: see HPI Physical Exam Vital Signs: RN Vital Signs have been reviewed: Yes, Temperature: 97.4, Source: Temporal, Heart Rate: 74, Respiratory Rate: 16, BP: 121/58, Pulse Oximetry: 99, Weight: 68.180 Oxygen Flow Rate: 0 General Appearance: alert, WD/WN, no apparent distress Cardiovascular: normal peripheral pulses, regular rate, rhythm, no edema Respiratory: lungs clear, normal breath sounds, no respiratory distress Chest: normal inspection; No: retractions Respiratory No obvious deformity seen. Tenderness to the left lower lateral ribs Progress Results/Orders Results/Orders Completed Orders - KAYLEY GIRARD NP Lidocaine 5% Patch (Lidoderm 5% Patch) (11/29/24 09:30) Medications Received in ER Medications (Trade) Dose Ordered Sig/Ramesh Route PRN Reason Start Time Stop Time Status Last Admin Dose Admin (Lidoderm 5% Patch) 1 patch ONCE STAT TP 11/29/24 09:30 11/29/24 09:31 DC 11/29/24 09:39 1 PATCH Vital Signs 11/29/24 08:36 Temp 97.4 Pulse 74 Resp 16 B/P (MAP) 121/58 Pulse Ox 99 O2 Flow Rate 0 EKG/XRAY/CT/US/VASC/MRI Chest X-Ray : Additional Comments [facility] DI RIBS,BILAT 3VW MIN INDICATION: trauma COMPARISON: None TECHNIQUE: Frontal view of the chest and 4 views of the right ribs history FINDINGS: No focal consolidation, pleural effusion or significant pneumothorax. Normal cardiomediastinal silhouette. Atherosclerotic vascular calcifications of the thoracic aorta are noted. No displaced right rib fracture. IMPRESSION: No acute cardiopulmonary disease. No displaced right rib fracture. Medical Decision Making Findings X-ray was unremarkable for any significant thickened findings vitals reassuring and lung sounds clear. Discussed rib contusions and encourage patient not to take NSAIDs but Tylenol with lidocaine patches ordered. Patient will follow up with primary care Differential Dx:Considerations: Include: Chest wall contusion, Flail chest, Pneumothorax, Pulmonary contusion, Rib fracture Departure Time of Disposition: : Disposition: 01 HOME / SELF CARE / HOMELESS Impression: Primary Impression: Rib pain Condition: Stable Discharge Instructions: Rib Contusion Additional Instructions: Tylenol as prescribed and lidocaine patches for rib pain. Follow up with primary care in one week or sooner for further treatment and evaluation Referrals: NO PRIMARY CARE PROVIDER (PCP) Prescriptions Lidocaine (Lidoderm) 5 % Adh..patch 1 PATCH TOP DAILY for 30 Days, #30 PATCH 0 Refills may wear up to 12 hours Prov: KAYLEY GIRARD NP 11/29/24 Education Educated: Patient Educated regarding: diagnosis, treatment, need for follow up Signature Scribe Signature: No Scribe Attestation: The note accurately reflects work and decisions made by me.Kayley Girard - TWX OPERATOR 11/29/24 10:39 KAYLEY GIRARD NP Nov 29, 2024 09:30
[2024-11-29] MEDS: LIDOcaine 5% patch TP STA (09:39)
== END 2024-11-29 09:44 | disposition home or self-care (01) ==
LOC: ER 08:32
DX: R07.81 Pleurodynia (principal); E11.9 Type 2 diabetes mellitus without complications; E78.00 Pure hypercholesterolemia, unspecified; I10 Essential (primary) hypertension; I25.10 Atherosclerotic heart disease of native coronary artery without angina pectoris; Z79.02 Long term (current) use of antithrombotics/antiplatelets; Z79.4 Long term (current) use of insulin; Z79.84 Long term (current) use of oral hypoglycemic drugs; Z79.899 Other long term (current) drug therapy; Z72.89 Other problems related to lifestyle
CPT/HCPCS: 71110; 99284